=== PATIENT | female | born 1950 | race Caucasian/White ===

== ENCOUNTER → 2021-08-09 12:49 | Outpatient (BNVA) | payer MEDICARE, SELFPAY | PROVIDERS: Visit Provider Internal Medicine | DX: I48.0 Paroxysmal atrial fibrillation (principal); I51.81 Takotsubo syndrome; R94.31 Abnormal electrocardiogram [ECG] [EKG] | CPT/HCPCS: 93005; 99212 ==

== ENCOUNTER → 2021-08-17 10:47 | Outpatient (REF) | payer MEDICARE, SELFPAY ==
--- NOTE | 2021-08-17 11:01 | HM_ITS ---
* Total monitoring time 1 day 4 hours. * Underlying rhythm is sinus. Average rate 66/Min. Range 45 to 109/Min. About 13% of the time, rate less than 60/Min. * No atrial fibrillation or flutter or AV blocks or pauses. * Rare supraventricular ectopy with minimal burden. * Very rare ventricular ectopy with minimal burden. * No patient events. MTDD
== END ==
LOC: HO.CARD 10:47
PROVIDERS: Visit Provider Internal Medicine
DX: I48.0 Paroxysmal atrial fibrillation (principal); R00.2 Palpitations
CPT/HCPCS: 93242

== ENCOUNTER → 2021-10-13 13:27 | Outpatient (BNVA) | payer MEDICARE, SELFPAY | PROVIDERS: PCP Family Medicine; Visit Provider Internal Medicine | DX: I48.0 Paroxysmal atrial fibrillation (principal); I51.81 Takotsubo syndrome; R94.31 Abnormal electrocardiogram [ECG] [EKG] | CPT/HCPCS: 93005; 99212 ==

== ENCOUNTER → 2021-11-29 13:36 | Outpatient (BNVA) | payer MEDICARE, SELFPAY | PROVIDERS: PCP Family Medicine; Visit Provider Internal Medicine | DX: I48.0 Paroxysmal atrial fibrillation (principal); I51.81 Takotsubo syndrome; R94.31 Abnormal electrocardiogram [ECG] [EKG] | CPT/HCPCS: 99212 ==

== ENCOUNTER → 2021-12-13 15:41 | Outpatient (REF) | payer MEDICARE, SELFPAY ==
--- NOTE | 2021-12-13 15:44 | CA_ITS ---
Transthoracic Echocardiogram Patient (Last, First, Middle): Max Banks, Gender: Female Date of : 1950 Age: 71 Procedure Date: 12/13/2021 Procedure Type: Transthoracic Echocardiogram Location: OP Height: 154.94 cm Weight: 78.02 kg BSA: 1.77 m2 Heart Rate: bpm BP: 122 / 68 mmHg Computer Compositor: FARRAH Referring MD: Francisco Crawford MD Symptoms: I51.81 - Takotsubo syndrome Study Quality: Adequate/contrast ECG Rhythm: Sinus Conclusions: - The left ventricular systolic function is normal. The calculated ejection fraction is 61% by biplane method. - Evidence suggests grade II (moderate) diastolic dysfunction. - The left atrium is moderately dilated. - No obvious valvular pathology seen on this study. - Mild pulmonary hypertension is present. Findings Procedure Information Contrast agent, definity, is being given per protocol without apparent complications. Left Ventricle Normal left ventricular cavity size. There is normal left ventricular wall thickness. The left ventricular systolic function is normal. The calculated ejection fraction is 61% by biplane method. There is no evidence of regional wall motion abnormalities. E/E prime ratio is >15, consistent with elevated filling pressures. Evidence suggests grade II (moderate) diastolic dysfunction. Right Ventricle Mildly increased right ventricular cavity size. There is normal right ventricular systolic function. Atria The left atrium is moderately dilated. The right atrium is mildly dilated. Aortic Valve There is a normal trileaflet aortic valve. There is no aortic valve stenosis. There is trace (trivial) aortic valve regurgitation. Mitral Valve There is mild mitral annular calcification. There is trace mitral valve regurgitation. There is no mitral valve stenosis. Pulmonic Valve The pulmonic valve is likely normal. Tricuspid Valve There is mild tricuspid valve regurgitation. Mild pulmonary hypertension is present. Great Vessels The aortic annulus, sinuses of valsalva, and asc aorta are normal in size. Venous The inferior vena cava is normal in size and collapses greater than 50% with inspiration. Pericardium/Pleural There is no evidence of pericardial effusion. Prior Study Comparison No prior study available for comparison. Recommendations, Care & Conclusions No obvious valvular pathology seen on this study. Measurements 2D Linear Measurements IVSd: 0.92 0.6-0.9/0.6-1.0 cm LVIDd: 4.60 3.9-5.3/4.2-5.9 cm LVIDd Index: 2.60 2.4-3.2/2.2-3.1 cm/m2 LVIDs: 3.18 2.0-3.6 cm LVPWd: 0.88 0.7-1.1 cm LA Diam: 3.50 2.7-3.8/3.0-4.0 cm LAIDs Index: 1.98 1.5-2.3 cm/m2 LV Mass: 170.38 67-162/88-224 g LV Mass Index: 96.26 43-95/49-115 g/m2 LVOT Diam: 1.90 3.0+(-)1.3 cm 2D Systolic Function EF 4C: 62.70 >55% EF 2C: 63.50 >55% EF BiP: 61.30 >55% Mitral Valve MV Pk E: 1.10 MV PK A: 0.54 MV Decel Time: 201.00 E/A: 2.00 E'Lateral: 8.49 E'Medial: 6.64 E/E' Med: 16.60 E/E' Lat: 13.00 PHT: 59.00 MVA PHT: 3.73 Decel [place]: 5.45 Aortic Valve AoV Pk Hammad: 1.94 AoV Mn Hammad: 1.44 AoV VTI: 0.50 AoV Pk Grad: 15.00 Aov Mn Grad: 9.00 AIDAN Cont.VTI: 2.08 LVOT LVOT Pk Hammad: 1.49 LVOT Mn Hammad: 1.07 LVOT VTI: 0.36 LVOT Pk Grad: 9.00 LVOT Mn Grad: 5.00 LVOT Diam: 1.90 LVOT Area: 2.84 Diastolic Function MV Pk E: 1.10 MV Pk A: 0.54 E/A: 2.00 E'Medial: 6.64 E/E' Med: 16.60 E' Laterial: 8.49 E/E' Lat: 13.00 Right Ventricle TAPSE (mm): 22.20 TVS' Hammad: 10.40 Tricuspid Valve TR Pk Hammad: 2.92 TR Pk Grad: 34.00 RA Press: 3.00 RVSP: 37.00 Great Vessels Aorta Sinus of Valsalva: 2.98 2.0-3.[address] [place]: 2.39 1.7-3.4 cm Ao Asc: 3.40 2.1-3.4 cm Updated in Other Vendor System with Status of Final Francisco Crawford MD electronically signed on 12/14/2021 9:10:47 AM with status of Final
== END ==
LOC: HO.CARD 15:41
PROVIDERS: PCP Family Medicine; Visit Provider Internal Medicine
DX: I51.81 Takotsubo syndrome (principal)
CPT/HCPCS: 93306; Q9957

== ENCOUNTER → 2022-01-18 13:08 | Outpatient (BNVA) | payer MEDICARE, SELFPAY | PROVIDERS: PCP Family Medicine; Visit Provider Internal Medicine | DX: I48.0 Paroxysmal atrial fibrillation (principal); I51.81 Takotsubo syndrome; R94.31 Abnormal electrocardiogram [ECG] [EKG]; Z79.899 Other long term (current) drug therapy | CPT/HCPCS: 99212 ==

== ENCOUNTER 2022-05-16 12:19 | Outpatient (REF) | payer MEDICARE, SELFPAY ==
[2022-05-16 15:48] LABS: Anion Gap 12 (12-20); Blood Urea Nitrogen 18 mg/dL (9-16); Calcium 9.3 mg/dL (8.4-10.2); Carbon Dioxide 33 mmol/L (22-29); Chloride 101 mmol/L (96-108); Estimated Glomerular Filt Rate > 60; Glucose Random 120 mg/dL (60-115); Potassium 3.9 mmol/L (3.3-5.1); Sodium 142 mmol/L (135-145)
== END 2022-05-16 12:20 | disposition home or self-care (01) ==
LOC: HO.LAB 12:19
PROVIDERS: PCP Family Medicine; Visit Provider Internal Medicine
DX: I48.0 Paroxysmal atrial fibrillation (principal); I51.81 Takotsubo syndrome; R94.31 Abnormal electrocardiogram [ECG] [EKG]
CPT/HCPCS: 36415; 80048; 93005; 99212

== ENCOUNTER → 2022-09-28 10:08 | Outpatient (BNVA) | payer MEDICARE, SELFPAY | PROVIDERS: PCP Family Medicine; Visit Provider Internal Medicine | DX: I48.0 Paroxysmal atrial fibrillation (principal); I51.81 Takotsubo syndrome; R06.02 Shortness of breath | CPT/HCPCS: 93005; 99212 ==

== ENCOUNTER 2022-10-09 09:28 | Emergency (ER) | payer MEDICARE, SELFPAY ==
--- NOTE | ~2022-10-09 | CT_ITS ---
EXAMINATION: CT ANGIOGRAM OF THE CHEST WITH AND WITHOUT CONTRAST (CT PULMONARY ANGIOGRAM FOR PE) CLINICAL INFORMATION: Reason for Exam shortness of breath COMPARISON: None available. TECHNIQUE: Prior to contrast administration, noncontrast localization images were obtained. Subsequently, multidetector volumetric imaging was performed from the thoracic inlet to below the diaphragms following the administration of 65 mL Omnipaque 350 intravenous contrast. No contrast reaction reported Sagittal, coronal, and MIP oblique sagittal reformatted images were obtained on the CT workstation, uploaded to PACS, and reviewed. This CT examination was performed using dose optimization techniques as appropriate, variously including the following: *Automated exposure control *Adjustment of mA and/or kV according to patient size (this includes techniques or standardized protocols for targeted exams where dose is matched to indication/reason for exam; i.e. extremities or head) *Use of iterative reconstruction technique Total exam dose-length product 376 mGy-cm FINDINGS: QUALITY OF STUDY/CONTRAST BOLUS: Satisfactory. PULMONARY ARTERIES: No pulmonary emboli. THORACIC AORTA: No aneurysm. LUNG: There is a 4 mm nodule seen in the right middle lobe (8:253). There is a 3 mm perifissural nodule along the major fissure in the right lower lobe (8:175). No focal consolidation, additional or l worrisome nodules/masses. PLEURA: No pleural effusion or pneumothorax. MEDIASTINUM: The esophagus is patulous and filled with fluid. Normal heart size. No pericardial effusion. No hilar or mediastinal lymphadenopathy. No evidence of septal bowing or right heart strain. CORONARY ARTERY CALCIFICATION: None visualized on this study. CHEST WALL/AXILLA: No axillary or internal mammary lymphadenopathy. OSSEOUS STRUCTURES: No acute or suspicious osseous abnormality. There is a compression fracture of L1 with kyphoplasty changes with some cement in the L1-L2 disc space. UPPER ABDOMEN: Unremarkable. No reflux of contrast into the hepatic veins to suggest elevated right heart pressures. CT/CT angio chest PE protocol IMPRESSION: 1. No evidence of pulmonary emboli. 2. Markedly patulous esophagus, filled with fluid. GI consultation barium swallow may be indicated. No definite obstructing mass lesion is seen. 3. 4 mm right middle lobe lung nodule. VTE: negative. 2017 Fleischner Society Recommendations for Lung Nodule(s): Follow up based on size (average of long- and short-axis diameters). Use most suspicious nodule for followup. Multiple Solid lung nodules < 6 mm: Follow up management based on most suspicious nodule. In a low-risk patient, no routine follow-up imaging is recommended. In a high-risk patient, a non-contrast Chest CT at 12 months is optional. If performed and the nodule is stable at 12 months, no further follow up is recommended. These guidelines do not apply to patients younger than 35 years, immunocompromised patients, and patients with cancer. F/u in patients with significant comorbidities as clinically warranted. For lung cancer screening, adhere to Lung-RADS guidelines. Reference: Radiology. 2017 [employer]; 284(1):228-243
--- NOTE | ~2022-10-09 | XR_ITS ---
EXAMINATION: XR CHEST CLINICAL INFORMATION: Dyspnea COMPARISON: None available. TECHNIQUE: 2 views of the chest were obtained. FINDINGS: Very dilated air-filled esophagus. Normal heart size. Hilar and mediastinal contours are otherwise normal. Clear lungs. No pleural effusion or pneumothorax. Degenerative changes of the spine. Mild old appearing proximal thoracic vertebral body compression fracture. Old fracture deformity of the left shoulder. Old left lateral rib fracture. XR/XR chest 2V IMPRESSION: Dilated air-filled esophagus.
[2022-10-09 09:51] VITALS: BP 124/68; PULSE 67; RESP 20; TEMP 36.3; O2SAT 93; BMI 33.6
[2022-10-09 10:12] LABS: MANUAL DIFF FLAG NO
[2022-10-09 10:13] LABS: Basophils Absolute Auto 0.1 X10*3/uL (0.0-0.2); Basophils Percent Auto 0.9 % (0-2); Eosinophils Absolute Auto 0.4 X10*3/uL (0.0-0.4); Eosinophils Percent Auto 6.5 % (0-4); Hematocrit 36.8 % (37.0-47.0); Hemoglobin 11.9 g/dl (12.0-16.0); Imm Gran Abs Auto 0.02 X10*3/uL (0.00-0.03); Imm Gran Pct Auto 0.4 % (0.0-0.4); Lymphocytes Absolute Auto 1.8 X10*3/uL (1.2-4.9); Lymphocytes Percent Auto 30.6 % (20-40); Mean Corpuscular HGB Conc 32.3 g/dl (31.0-35.0); Mean Corpuscular Hemoglobin 30.1 pg (27.0-33.0); Mean Corpuscular Volume 93.2 fL (80.0-98.0); Mean Platelet Volume 8.6 fL (9.4-12.3); Monocytes Absolute Auto 0.4 X10*3/uL (0.1-1.2); Monocytes Percent Auto 6.7 % (2-11); Neutrophils Absolute Auto 3.1 x10*3/uL (2.0-8.3); Neutrophils Percent Auto 54.9 % (45-73); Platelet Count 295 X10*3/uL (160-400); Red Blood Count 3.95 X10*6/uL (4.20-5.50); Red Cell Distribution Width 14.7 % (11.0-16.0); White Blood Count 5.7 X10*3/uL (4.8-10.8)
[2022-10-09 10:25] LABS: Alanine Aminotransferase 19 U/L (0-31); Albumin Level 4.2 g/dL (3.5-5.0); Alkaline Phosphatase 76 U/L (39-117); Anion Gap 15 (12-20); Aspartate Amino Transferase 24 U/L (5-31); Bilirubin Direct 0.2 mg/dL (0.0-0.5); Bilirubin Total 0.6 mg/dL (0.0-1.0); Blood Urea Nitrogen 16 mg/dL (9-16); Calcium 9.4 mg/dL (8.4-10.2); Carbon Dioxide 27 mmol/L (22-29); Chloride 105 mmol/L (96-108); Creatinine Clr Calc Pharmacy 53.1; Estimated Glomerular Filt Rate > 60; Glucose Random 144 mg/dL (60-115); Lipase 18 U/L (8-78); Potassium 3.8 mmol/L (3.3-5.1); Sodium 143 mmol/L (135-145); Total Protein 6.6 g/dL (6.5-8.0)
[2022-10-09 10:26] LABS: B Type Natriuretic Peptide 19 pg/mL (<100)
[2022-10-09 12:00] VITALS: BP 115/65; PULSE 87; RESP 18; TEMP 36.6; O2SAT 92
--- NOTE | 2022-10-09 12:30 | PC.NURSE ---
Alert and oriented. Arrived from [facility] complaining of SOB since . States on thur she woke sob. States on sat took an extra dose of lasiks (20mg) so get m extra fluids off. States it did help sat but woke up sob again sunday. States uses a bipap every night. No edema noted to bilat lower extremities. sating 92% placed on 2 liters 02 was sat up to 98%. NO sob with rest noted. Wheezing noted - patient states has been wheezig throughout the weekend. Has occasional dry cough that patient states is new. Denies chest pain, headache, nausea, or vomiting.
--- NOTE | 2022-10-09 12:46 | ECG_ITS ---
Test Reason : SOB Blood Pressure : / mmHG Vent. Rate : 046 BPM Atrial Rate : 046 BPM P-R Int : 166 ms QRS Dur : 102 ms QT Int : 492 ms P-R-T Axes : 053 052 046 degrees QTc Int : 430 ms Sinus bradycardia Otherwise normal ECG No previous ECGs available Referred By: Jamar Bahena Electronically Signed By:DARNELL NIETO MD
--- NOTE | 2022-10-09 13:32 | ED.SOB ---
HPI - SOB/Dyspnea General Chief Complaint: Dyspnea Stated Complaint: Diff breathing/cough Time Seen by Provider: 10/09/22 11:57 Source: patient Mode of arrival: EMS Limitations: no limitations History of Present Illness HPI Narrative: 72-year-old female with history of cardiomyopathy, sleep apnea presents with shortness breath. The symptoms started approximately 5 days ago. They appear to be worse when getting up in the morning. She takes some extra Lasix her symptoms get better. Patient describes symptoms as moderate to severe. There is no chest pain. There is associated dry cough occasionally with clear mucus production. She denies any fevers or chills. She denies any lower extremity edema although she feels like they might be swollen. Patient denies a history of similar symptoms. There are no sick contacts. Patient denies any nasal congestion, rhinorrhea or pruritus. Related Data Home Medications Medication Instructions Recorded Confirmed apixaban 5 mg tablet (Eliquis) 5 mg PO BID 08/09/21 09/28/22 hydrocodone 7.5 mg-acetaminophen 1 tab PO Q4H PRN pain 08/09/21 09/28/22 325 mg tablet levothyroxine 25 mcg tablet 25 mcg PO DAILY 08/09/21 09/28/22 pravastatin 40 mg tablet 40 mg PO QPM 08/09/21 09/28/22 pregabalin 200 mg capsule 200 mg PO BID 08/09/21 09/28/22 aripiprazole 10 mg tablet 10 mg PO BID 10/13/21 09/28/22 duloxetine 20 mg capsule,delayed 20 mg PO .QD 01/18/22 09/28/22 release metoprolol succinate 25 mg 25 mg PO DAILY 01/18/22 09/28/22 tablet,extended release 24 hr (Toprol XL) oxybutynin chloride 15 mg 15 mg PO DAILY 05/16/22 09/28/22 tablet,extended release 24 hr Previous Rx's Medication Instructions Recorded furosemide 40 mg tablet 40 mg PO DAILY #90 tabs 02/14/22 Allergies Allergy/AdvReac Type Severity Reaction Status Date / Time alendronate sodium Allergy Mild Rash Verified 10/09/22 09:53 [From Fosamax] calcitriol Allergy Unknown Unknown Verified 10/09/22 09:53 amitriptyline AdvReac Severe SVT Verified 10/09/22 09:53 morphine AdvReac Unknown Hypotension Verified 10/09/22 09:53 Sulfa (Sulfonamide AdvReac Unknown tooth pain Verified 10/09/22 09:53 Antibiotics) Review of Systems Review of Systems: CONSTITUTIONAL: Denies weight loss, fever and chills. HEENT: Denies changes in vision and hearing. RESPIRATORY: + SOB and cough. CV: Denies palpitations no CP. GI: Denies abdominal pain, nausea, vomiting and diarrhea. : Denies dysuria and urinary frequency. MSK: Denies myalgia and joint pain. SKIN: Denies rash and pruritus. NEUROLOGICAL: Denies headache and syncope. PSYCHIATRIC: Denies recent changes in mood. Denies anxiety and depression. All other ROS are negative unless in HPI PMFSH Past Medical History Medical History PAF (paroxysmal atrial fibrillation) QT prolongation Stress-induced cardiomyopathy Surgical History H/O section History of appendectomy History of endoscopy History of hysterectomy History of tubal ligation Family History Family History Father Heart attack Mother Heart attack Brother H/O heart artery stent Social History Social History Alcohol intake: current Alcohol intake frequency: a few times a month Patient Tobacco Use Status: Former Tobacco user Quit Date: 1981 Smoked: 10 +/- Advance Directives: No Advance Directives Information Provided: Yes Physical Exam Vital Signs: Vital Signs: Last Vital Signs Temp 98.1 F 10/09/22 16:15 Pulse 61 10/09/22 16:15 Resp 20 10/09/22 16:15 BP 114/55 L 10/09/22 16:15 Pulse Ox 94 10/09/22 16:15 O2 Del Method Room Air 10/09/22 16:15 BMI result Body Mass Index 33.6 GEN: Well developed, no acute distress, alert, oriented HEENT: Normocephalic, atraumatic, normal external ears, nose appears normal, no oropharyngeal edema or exudates Eyes: Normal to appearance Neck: Supple, no lymphadenopathy Respiratory: Talks in complete sentences, no respiratory distress, clear to auscultation bilaterally Cardiovascular: Regular rate and rhythm, no murmurs rubs or gallops Abdomen: Soft, nontender, nondistended, no guarding, no rebound Back: No CVA tenderness Extremities: No clubbing cyanosis or edema Neurologic: No focal neurologic deficits, cranial nerves 2-12 intact, strength is 5/5 bilaterally Skin: No rash Medications Administered Discontinued Medications Generic Name Dose Route Start Last Admin Trade Name Negra PRN Reason Stop Dose Admin Iohexol 100 ml 10/09/22 13:41 10/09/22 13:42 Iohexol 350 Mg/Ml 100 Ml Infus..Btl IV 10/09/22 13:42 65 ml ONCE ONE Administration Medical Decision Making Medical Decision Making [facility] Narrative: 72-year-old female with history of cardiomyopathy can not and sleep apnea presents shortness breath. Examination was unremarkable. Patient was initially seen when on oxygen however, off oxygen, oxygen saturations 94-96% on room air. Differential diagnosis could include COPD, asthma, CHF, pulmonary embolus, pneumothorax, myopathy. Plan chest x-ray, EKG, laboratory analysis to rule out anemia or electrolyte abnormality and frequent re-evaluations. Disposition pending workup. Took over patient's case at the change of shift from Dr. Hager. Pending CTA. CTA results showed no evidence of pulmonary emboli. A nodule was noted some fullness in the esophagus was noted. This finding was discussed with patient. Will need follow-up on an outpatient basis. Patient is in stable condition. O2 sat is normal. Well-appearing. No distress. Differential Diagnosis Differential Diagnoses: The differential diagnosis associated with the presentation includes (See above) Admission/Observation Consideration of admission/observation: Escalation of care including admission/observation considered Lab Data [facility] Lab Attestation statement: I reviewed the patient's lab results. 10/09/22 10:04 10/09/22 09:59 Labs: Lab Results 10/09/22 10/09/22 10/09/22 Range/Units 09:59 09:59 10:04 WBC 5.7 (4.8-10.8) X10*3/uL RBC 3.95 L (4.20-5.50) X10*6/uL Hgb 11.9 L (12.0-16.0) g/dl Hct 36.8 L (37.0-47.0) % MCV 93.2 (80.0-98.0) fL MCH 30.1 (27.0-33.0) pg MCHC 32.3 (31.0-35.0) g/dl RDW 14.7 (11.0-16.0) % Plt Count 295 (160-400) X10*3/uL MPV 8.6 L (9.4-12.3) fL Immature Gran % (Auto) 0.4 (0.0-0.4) % Neut % (Auto) 54.9 (45-73) % Lymph % (Auto) 30.6 (20-40) % Crawford % (Auto) 6.7 (2-11) % Eos % (Auto) 6.5 H (0-4) % Baso % (Auto) 0.9 (0-2) % Lymph # (Auto) 1.8 (1.2-4.9) X10*3/uL Crawford # (Auto) 0.4 (0.1-1.2) X10*3/uL Eos # (Auto) 0.4 (0.0-0.4) X10*3/uL Baso # (Auto) 0.1 (0.0-0.2) X10*3/uL Abs Immat Gran (auto) 0.02 (0.00-0.03) X10*3/uL Absolute Neuts (auto) 3.1 (2.0-8.3) x10*3/uL Absolute Nucleated RBC 0.000 (0.0-0.012) X10*3/uL Nucleated RBC % (auto) 0.0 (0.0-0.2) /100WBC Sodium 143 (135-145) mmol/L Potassium 3.8 (3.3-5.1) mmol/L Chloride 105 (96-108) mmol/L Carbon Dioxide 27 (22-29) mmol/L Anion Gap 15 (12-20) BUN 16 (9-16) mg/dL Creatinine 0.87 (0.5-1.4) mg/dL Estim Creat Clear Calc 53.1 Estimated GFR > 60 Random Glucose 144 H (60-115) mg/dL Calcium 9.4 (8.4-10.2) mg/dL Total Bilirubin 0.6 (0.0-1.0) mg/dL Direct Bilirubin 0.2 (0.0-0.5) mg/dL AST 24 (5-31) U/L ALT 19 (0-31) U/L Alkaline Phosphatase 76 (39-117) U/L B-Natriuretic Peptide 19 (<100) pg/mL Total Protein 6.6 (6.5-8.0) g/dL Albumin 4.2 (3.5-5.0) g/dL Lipase 18 (8-78) U/L Independent Interpretation I performed an independent interpretation of an: Plain X-Ray (Chest: No acute cardiopulmonary disease) External Record Review External record reviewed: Office record Prescription Management I considered prescription management with: Antibiotic Discharge Plan Discharge Clinical Impression: Acute dyspnea Patient Disposition: Home, Self-Care Instructions: Dyspnea (ED) Additional Instructions: ? No evidence of pulmonary emboli. 2.? Markedly patulous esophagus, filled with fluid. GI consultation barium swallow may be indicated. No definite obstructing mass lesion is seen. 3.? 4 mm right middle lobe lung nodule. A nodule was found in your lungs. Nonspecific finding was noted in your esophagus. Please follow-up on an outpatient basis. Prescriptions: No Action furosemide 40 mg tablet 40 mg PO DAILY Qty: 90 2RF pregabalin 200 mg capsule 200 mg PO BID levothyroxine 25 mcg tablet 25 mcg PO DAILY Eliquis 5 mg tablet 5 mg PO BID hydrocodone-acetaminophen 7.5-325 mg tablet 1 tab PO Q4H PRN (Reason: pain) pravastatin 40 mg tablet 40 mg PO QPM duloxetine 20 mg capsule,delayed release(DR/EC) 20 mg PO .QD metoprolol succinate [Toprol XL] 25 mg tablet extended release 24 hr 25 mg PO DAILY aripiprazole 10 mg tablet 10 mg PO BID oxybutynin chloride 15 mg tablet extended release 24hr 15 mg PO DAILY Referrals: Angie Briggs MD [Primary Care Provider] - 2 days
--- NOTE | 2022-10-09 13:34 | PC.NURSE ---
Alert and oriented, Iv placed in right AC for CT angio. No sob at this time.
[2022-10-09] MEDS: iohexoL 350 MG/ML 100 ML INFUS..BTL IV (13:42)
[2022-10-09 14:00] VITALS: BP 130/80; RESP 18; O2SAT 94
--- NOTE | 2022-10-09 15:01 | PC.NURSE ---
Alert and oriented, no sob noted at rest, patient resting comfortably in bed a this time. VSS.
[2022-10-09 16:15] VITALS: BP 114/55; PULSE 61; RESP 20; TEMP 36.7; O2SAT 94
--- NOTE | 2022-10-09 18:16 | PC.NURSE ---
Radiology trade embalmer called to inquire about CTA results, trade embalmer states she will look into it and reach out to radiologist for reading.
[2022-10-09 19:08] VITALS: BP 157/70; PULSE 69; RESP 16; TEMP 36.4; O2SAT 95
== END 2022-10-09 19:21 | disposition home or self-care (01) ==
PROVIDERS: Emergency Provider Emergency Medicine; PCP Family Medicine
DX: R06.00 Dyspnea, unspecified (principal); R06.02 Shortness of breath; I42.9 Cardiomyopathy, unspecified; G47.30 Sleep apnea, unspecified
CPT/HCPCS: 36415; 71046; 71275; 80048; 80076; 83690; 83880; 85025; 93005; 99284; Q9967

== ENCOUNTER → 2022-11-07 09:43 | Outpatient (REF) | payer MEDICARE, SELFPAY ==
--- NOTE | 2022-11-07 09:45 | CA_ITS ---
Transthoracic Echocardiogram Patient (Last, First, Middle): Max Banks, Gender: Female Date of : 1950 Age: 72 Procedure Date: 11/07/2022 Procedure Type: Transthoracic Echocardiogram Location: OP Height: 152.4 cm Weight: 76.2 kg BSA: 1.73 m2 Heart Rate: bpm BP: 122 / 60 mmHg Structural Welder: EDWARD Referring MD: Jessica iL INSTRUCTOR CREELER-Marylou Brilliandeer Lopper: Ronny Hough MD Symptoms: R06.02 - Shortness of breath Study Quality: Adequate ECG Rhythm: Sinus Conclusions: - 1. Normal LV systolic function with pseudonormal filling pressure with suggestion of increased left ventricular end diastolic pressure next 2. Moderately dilated left atrium 3. Normal cardiac valvular Dopplers 4. Normal calculated RV systolic pressure 5. No gross pericardial effusion Findings Left Ventricle Normal left ventricular size, thickness, and systolic function. The visually estimated ejection fraction is between 60-65%. Spectral Doppler is indicative of a pseudonormal filling pattern. Elevated left ventricular end diastolic pressure. E/E prime ratio is between 8 and 15 consistent with indeterminate filling pressures. Right Ventricle Normal right ventricular cavity size and systolic function. Atria The left atrium is moderately dilated. There is no evidence of interatrial shunt. The right atrium is likely dilated. Aortic Valve The aortic valve structure and function is likely normal. There is no aortic valve stenosis. There is no aortic valve regurgitation. Mitral Valve Likely normal mitral valve structure and function. There is mild mitral annular calcification. There is trace mitral valve regurgitation. There is no mitral valve stenosis. Pulmonic Valve The pulmonic valve is likely normal. Tricuspid Valve Likely normal tricuspid valve structure and function. There is trace tricuspid valve regurgitation. The right ventricular systolic pressure is normal. The right ventricular systolic pressure is 21 mmHg. Normal right atrial pressure. There is no evidence of pulmonary hypertension. Great Vessels All visible segments of the aorta are normal in size. The pulmonary artery was not well visualized. Venous The inferior vena cava is normal in size and collapses greater than 50% with inspiration. Pericardium/Pleural There is no evidence of pericardial effusion. Prior Study Comparison No significant change compared to prior study dated: 12/13/2021. Measurements 2D Linear Measurements IVSd: 1.00 0.6-0.9/0.6-1.0 cm LVIDd: 4.10 3.9-5.3/4.2-5.9 cm LVIDd Index: 2.37 2.4-3.2/2.2-3.1 cm/m2 LVIDs: 2.70 2.0-3.6 cm LVPWd: 1.10 0.7-1.1 cm Ao Root: 2.80 2.1-3.5 cm LA Diam: 4.10 2.7-3.8/3.0-4.0 cm LAIDs Index: 2.37 1.5-2.3 cm/m2 LV Mass: 176.18 67-162/88-224 g LV Mass Index: 101.84 43-95/49-115 g/m2 LVOT Diam: 2.00 3.0+(-)1.3 cm 2D Systolic Function EF 4C: 61.40 >55% EF 2C: 68.20 >55% EF BiP: 64.50 >55% Mitral Valve MV Pk E: 0.86 MV PK A: 0.62 MV Decel Time: 157.00 E/A: 1.40 E'Lateral: 10.20 E'Medial: 9.36 E/E' Med: 9.20 E/E' Lat: 8.50 PHT: 46.00 MVA PHT: 4.78 Decel Rhea: 5.49 Aortic Valve AoV Pk Hammad: 1.84 AoV Mn Hammad: 1.19 AoV VTI: 0.43 AoV Pk Grad: 14.00 Aov Mn Grad: 7.00 AIDAN Cont.VTI: 2.36 LVOT LVOT Pk Hammad: 1.44 LVOT Mn Hammad: 0.85 LVOT VTI: 0.33 LVOT Pk Grad: 8.00 LVOT Mn Grad: 4.00 LVOT Diam: 2.00 LVOT Area: 3.14 Diastolic Function MV Pk E: 0.86 MV Pk A: 0.62 E/A: 1.40 E'Medial: 9.36 E/E' Med: 9.20 E' Laterial: 10.20 E/E' Lat: 8.50 Right Ventricle TAPSE (mm): 26.00 TVS' Hammad: 10.00 Tricuspid Valve TR Pk Hammad: 2.14 TR Pk Grad: 18.00 RA Press: 3.00 RVSP: 21.00 Great Vessels Aorta Ao Root-2D: 2.80 2.0-3.7 cm Ao Asc: 3.00 2.1-3.4 cm Pulmonary Valve PV Pk Hammad: 0.88 Peak PV Grad: 3.00 Updated in Other Vendor System with Status of Final Ronny Hough MD electronically signed on 11/07/2022 3:38:13 PM with status of Final
== END ==
LOC: HO.CARD 09:43
PROVIDERS: PCP Family Medicine; Visit Provider Nurse Practitioner Family
DX: R06.02 Shortness of breath (principal); I51.81 Takotsubo syndrome
CPT/HCPCS: 93306

== ENCOUNTER → 2022-11-07 09:45 | Outpatient (BNV) | payer MEDICARE, SELFPAY | PROVIDERS: PCP Family Medicine; Visit Provider Internal Medicine Cardiovascular Disease | DX: I34.81 Nonrheumatic mitral (valve) annulus calcification (principal) | CPT/HCPCS: 93306 ==

== ENCOUNTER 2022-11-21 12:35 | Outpatient (AMB) | payer MEDICARE, SELFPAY ==
--- NOTE | 2022-11-21 12:42 | MHC.OFFVIS ---
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 Accompanied by: Self / Same As Patient Allergies alendronate sodium [From Fosamax] Allergy (Mild, Verified 11/21/22 12:44) Rash calcitriol Allergy (Unknown, Verified 11/21/22 12:44) Unknown amitriptyline Adverse Reaction (Severe, Verified 11/21/22 12:44) SVT morphine Adverse Reaction (Unknown, Verified 11/21/22 12:44) Hypotension Sulfa (Sulfonamide Antibiotics) Adverse Reaction (Unknown, Verified 11/21/22 12:44) tooth pain Medication List - Last Reconciled 11/21/22 by Francisco Crawford MD apixaban (Eliquis) 5 mg PO BID aripiprazole 10 mg PO BID duloxetine 20 mg PO .QD furosemide 40 mg PO DAILY hydrocodone-acetaminophen 5-325 mg 1 tab PO Q6H PRN levothyroxine 25 mcg PO DAILY metoprolol succinate ER 25 mg PO DAILY oxybutynin chloride ER 15 mg PO DAILY pravastatin 40 mg PO QPM pregabalin 200 mg PO BID HPI HPI Comments History of Present Illness Details Max returns for follow-up. To recall, she was seen in consultation at [facility]. At that time, EKG was abnormal and corrected QT interval was almost 590 milliseconds. She was taking carvedilol and amiodarone. Previously, history of atrial fibrillation ablation. History of stress-induced cardiomyopathy. Subsequent, we stopped both carvedilol and amiodarone. Few months back, she was complaining of some shortness of breath. Then Lasix dose was increased. Since that time, no new symptoms. Overall, generally feeling okay. She still gets some shortness of breath while pushing the 's wheelchair up an incline but otherwise generally fine. [facility] Medical History PAF (paroxysmal atrial fibrillation) QT prolongation Stress-induced cardiomyopathy Surgical History H/O section History of appendectomy History of endoscopy History of hysterectomy History of tubal ligation Family History Father Heart attack Mother Heart attack Brother H/O heart artery stent Social History Alcohol intake: current Alcohol intake frequency: a few times a month Patient Tobacco Use Status: Former Tobacco user Quit Date: 1981 Years Smoked: 10 +/- Review of Systems Const Denies weakness ENT Denies dizziness Card Denies chest pain, Denies chest pain with activity, Denies syncope, Denies rapid heart rate, Denies pedal edema, Denies edema, Denies leg edema, Denies lightheadedness, Denies palpitations, Denies dyspnea, Denies dyspnea on exertion and Denies orthopnea Resp Denies cough, Denies dyspnea and Denies dyspnea on exertion GI Denies hematochezia and Denies change in stool character Musc Denies abnormal gait, Denies muscle cramps, Denies muscle weakness, Denies numbness, Denies radiating pain into limb and Denies tingling Neuro Denies abnormal gait, Denies dizziness, Denies syncope, Denies numbness, Denies tingling and Denies weakness Endo Denies palpitations Physical Exam Vital Signs: Last Vital Signs Pulse 67 11/21/22 12:43 BP 92/60 11/21/22 12:43 BMI result Body Mass Index 34.1 Const General: comfortable and no acute distress Orientation/consciousness: patient oriented x3 HEENT Other: Unremarkable Head: Yes normal to inspection Neck Neck: Yes normal visual inspection Chest Chest palpation & inspection: normal inspection of the chest Resp Auscultation: clear to auscultation bilaterally Cardio Palpation: normal PMI Heart sounds: S1 normal heart sound present, S2 normal heart sound present, no gallops, Murmur heart sound present systolic I/ and at the right sternal border and no rubs GI Palpation (GI): Soft to palpation Back/Spine/Pelvis Other: unremarkable Skin General skin exam: no rashes or lesions noted Neuro General: patient oriented x3 Extrem Other: 1+ edema General: Yes normal to inspection Psych Mental Status: mental status grossly normal Assessment & Plan Assessment & Plan (1) PAF (paroxysmal atrial fibrillation): Code(s): I48.0 - Paroxysmal atrial fibrillation Plan: Status post pulmonary vein isolation 2019. Due to markedly prolonged QT, off Amiodarone. With regard to other medications, it seems that she had recurrence of atrial fibrillation the past when Amiodarone dose reduced. Metoprolol had given her symptoms like dizziness and hypotension. Multaq was also tried but not very helpful. At the current time, she is stable on beta-blockers and may be continued. If any recurrence, possibly another ablation. Since last time, no new issues. Overall stable from this end. (2) Stress-induced cardiomyopathy: Code(s): I51.81 - Takotsubo syndrome Plan: In the most recent echocardiogram, LVEF 60-65%. Suspected moderate diastolic dysfunction but E' values seem to be in the normal range. No evidence of pulmonary hypertension. In the prior echocardiogram from [facility], LVEF was 51%. Basal to mid inferior wall described to be hypokinetic. Described to have improvement in biventricular function compared to before. In the discharge summary from [facility], described to have angiographically normal coronary arteries. Overall, remains stable. Continue diuretics. Not suitable for other medications due to low blood pressure issues. (3) QT prolongation: Code(s): R94.31 - Abnormal electrocardiogram [ECG] [EKG] Plan: Corrected QT as much as 590 milliseconds while on amiodarone as well as Coreg, psychiatric medications. Then normalized. Can be followed periodically. Plan Total time spent including review of data, counseling, documentation, coordination of care-31 minutes. Medications: Refilled furosemide 40 mg PO DAILY 90 tabs 3RF Coding Level of Care Code Est Pt Level 4 (51848) Diagnoses PAF (paroxysmal atrial fibrillation) I48.0 Stress-induced cardiomyopathy I51.81 QT prolongation R94.31
[2022-11-21 12:43] VITALS: BP 92/60; PULSE 67; BMI 34.1
== END 2022-11-21 12:56 | disposition home or self-care (01) ==
PROVIDERS: Visit Provider Internal Medicine
DX: I48.0 Paroxysmal atrial fibrillation (principal); I51.81 Takotsubo syndrome; R94.31 Abnormal electrocardiogram [ECG] [EKG]
CPT/HCPCS: 99214

== ENCOUNTER → 2022-11-21 12:35 | Outpatient (BNVA) | payer MEDICARE, SELFPAY | PROVIDERS: Visit Provider Internal Medicine | DX: I48.0 Paroxysmal atrial fibrillation (principal); I51.81 Takotsubo syndrome; I45.81 Long QT syndrome | CPT/HCPCS: 99212 ==

== ENCOUNTER 2023-05-24 13:31 | Outpatient (AMB) | payer MEDICARE, SELFPAY ==
--- NOTE | 2023-05-24 13:41 | A.OFFVIS_ITS ---
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 Accompanied by: Self / Same As Patient Allergies alendronate sodium [From Fosamax] Allergy (Mild, Verified 05/24/23 13:45) Rash calcitriol Allergy (Unknown, Verified 05/24/23 13:45) Unknown amitriptyline Adverse Reaction (Severe, Verified 05/24/23 13:45) SVT morphine Adverse Reaction (Unknown, Verified 05/24/23 13:45) Hypotension Sulfa (Sulfonamide Antibiotics) Adverse Reaction (Unknown, Verified 05/24/23 13:45) tooth pain Medication List - Last Reconciled 05/24/23 by Francisco Crawford MD apixaban (Eliquis) 5 mg PO BID aripiprazole 10 mg PO BID duloxetine 20 mg PO .QD furosemide 40 mg PO DAILY hydrocodone-acetaminophen 5-325 mg 1 tab PO Q6H PRN levothyroxine 25 mcg PO DAILY metoprolol succinate ER 25 mg PO DAILY oxybutynin chloride ER 15 mg PO DAILY pravastatin 40 mg PO QPM pregabalin 200 mg PO BID HPI HPI Comments History of Present Illness Details Max returns for follow-up. To recall, she was seen in consultation at [facility]. At that time, EKG was abnormal and corrected QT interval was almost 590 milliseconds. She was taking carvedilol and amiodarone. Previously, history of atrial fibrillation ablation. History of stress-induced cardiomyopathy. Subsequent, we stopped both carvedilol and amiodarone. More recently, she has been on metoprolol. She is generally doing well. She still gets occasional palpitations but not too frequent and not too bothersome. Otherwise, getting along okay. [facility], [facility] Medical History PAF (paroxysmal atrial fibrillation) QT prolongation Stress-induced cardiomyopathy Surgical History History of appendectomy H/O section History of endoscopy History of tubal ligation History of hysterectomy Family History Father Heart attack Mother Heart attack Brother H/O heart artery stent Social History Alcohol intake: current Alcohol intake frequency: a few times a month Patient Tobacco Use Status: Former Tobacco user Quit Date: 1981 Years Smoked: 10 +/- Review of Systems Const Denies weakness ENT Denies dizziness Card Denies syncope, Denies palpitations and Reports dyspnea on exertion Resp Reports dyspnea on exertion GI Denies hematochezia and Denies change in stool character Musc Denies abnormal gait, Denies muscle cramps, Denies muscle weakness, Denies numbness, Denies radiating pain into limb and Denies tingling Neuro Denies abnormal gait, Denies dizziness, Denies syncope, Denies numbness, Denies tingling and Denies weakness Endo Denies palpitations Physical Exam Vital Signs: Last Vital Signs Pulse 77 05/24/23 13:42 BP 110/60 05/24/23 13:42 BMI result Body Mass Index 34.1 Const General: comfortable and no acute distress Orientation/consciousness: patient oriented x3 HEENT Other: Unremarkable Head: Yes normal to inspection Neck Neck: Yes normal visual inspection Chest Chest palpation & inspection: normal inspection of the chest Resp Auscultation: clear to auscultation bilaterally Cardio Palpation: normal PMI Heart sounds: S1 normal heart sound present, S2 normal heart sound present, no gallops, no murmurs and no rubs GI Palpation (GI): Soft to palpation Back/Spine/Pelvis Other: unremarkable Skin General skin exam: no rashes or lesions noted Neuro General: patient oriented x3 Extrem General: Yes normal to inspection Psych Mental Status: mental status grossly normal Office Procedures EKG Details: EKG with sinus bradycardia 58/Min; no significant ST-T changes and otherwise unremarkable[place] [id number], Complete Assessment & Plan Assessment & Plan (1) PAF (paroxysmal atrial fibrillation): Code(s): I48.0 - Paroxysmal atrial fibrillation Plan: Status post pulmonary vein isolation 2018. Due to markedly prolonged QT, off Amiodarone. With regard to other medications, it seems that she had recurrence of atrial fibrillation in the past when Amiodarone dose reduced. Metoprolol had given her symptoms like dizziness and hypotension. Multaq was also tried but not very helpful. At the current time, she is stable on beta-blockers and may be continued. If continues to have recurrent atrial fibrillation, then possibly another ablation. To be decided. (2) Stress-induced cardiomyopathy: Code(s): I51.81 - Takotsubo syndrome Plan: In the most recent echocardiogram, LVEF 60-65%. Reported moderate diastolic dysfunction but E' values seem to be in the normal range. No evidence of pulmonary hypertension. In the prior echocardiogram from [facility], LVEF was 51%. Basal to mid inferior wall described to be hypokinetic. Described to have improvement in biventricular function compared to before. In the discharge summary from [facility], described to have angiographically normal coronary arteries. Overall, remains stable. Continue diuretics. Not suitable for other medications due to low blood pressure issues. (3) QT prolongation: Code(s): R94.31 - Abnormal electrocardiogram [ECG] [EKG] Plan: Corrected QT as much as 590 milliseconds while on amiodarone as well as Coreg, psychiatric medications. Then normalized. Can be followed periodically on EKGs. Coding Level of Care Code Est Pt Level 4 (96318) Diagnoses PAF (paroxysmal atrial fibrillation) I48.0 Stress-induced cardiomyopathy I51.81 QT prolongation R94.31 CPT Codes EKG - CPT: 35728-[id number], Complete ([id number])
[2023-05-24 13:42] VITALS: BP 110/60; PULSE 77; BMI 34.1
== END 2023-05-24 14:17 | disposition home or self-care (01) ==
PROVIDERS: PCP Family Medicine; Visit Provider Internal Medicine
DX: I48.0 Paroxysmal atrial fibrillation (principal); I51.81 Takotsubo syndrome; R94.31 Abnormal electrocardiogram [ECG] [EKG]
CPT/HCPCS: 93010; 99214

== ENCOUNTER → 2023-05-24 13:31 | Outpatient (BNVA) | payer MEDICARE, SELFPAY | PROVIDERS: PCP Family Medicine; Visit Provider Internal Medicine | DX: I48.0 Paroxysmal atrial fibrillation (principal); I51.81 Takotsubo syndrome; R94.31 Abnormal electrocardiogram [ECG] [EKG] | CPT/HCPCS: 93005; 99212 ==

== ENCOUNTER → 2023-06-11 09:22 | Outpatient (REF) | payer MEDICARE, SELFPAY ==
--- NOTE | 2023-06-11 09:25 | HM_ITS ---
Conclusion: 1. Patient was monitored for total period of 14 days 2. Baseline was normal sinus rhythm with average heart of 75 beats per minute 3. Intermittent episodes of atrial fibrillation with rapid ventricular response noted with total burden of 17.3% with longest episode lasting 10 hours and 51 minutes 4. No significant pauses noted 5. Frequent PACs noted with total burden of 4% 6. Patient reported 4 events with symptoms of not feeling well, fluttering in chest, palpitations correlating with atrial fibrillation MTDD
== END ==
LOC: HO.CARD 09:22
PROVIDERS: PCP Family Medicine; Visit Provider Internal Medicine
DX: I48.0 Paroxysmal atrial fibrillation (principal)
CPT/HCPCS: 93246

== ENCOUNTER → 2023-06-11 09:25 | Outpatient (BNV) | payer MEDICARE, SELFPAY | PROVIDERS: PCP Family Medicine; Visit Provider Internal Medicine Cardiovascular Disease | DX: I48.0 Paroxysmal atrial fibrillation (principal) | CPT/HCPCS: 93248 ==

== ENCOUNTER → 2023-09-10 14:49 | Outpatient (BNVA) | payer MEDICARE, SELFPAY | PROVIDERS: PCP Family Medicine; Visit Provider Internal Medicine ==

== ENCOUNTER 2023-10-04 09:48 | Outpatient (AMB) | payer MEDICARE, SELFPAY ==
--- NOTE | 2023-10-04 10:04 | AM.OFFVISNUR ---
Intake Intake Visit Reasons: EKG Allergies alendronate sodium [From Fosamax] Allergy (Mild, Verified 05/24/23 13:45) Rash calcitriol Allergy (Unknown, Verified 05/24/23 13:45) Unknown amitriptyline Adverse Reaction (Severe, Verified 05/24/23 13:45) SVT morphine Adverse Reaction (Unknown, Verified 05/24/23 13:45) Hypotension Sulfa (Sulfonamide Antibiotics) Adverse Reaction (Unknown, Verified 05/24/23 13:45) tooth pain Nursing Note PT is on Amiodarone 400 mg PT has no chest pain only some SOB with Activity EKG is left on Proviers desk for review Office Procedures EKG [id number], Complete Coding CPT Codes EKG - CPT: 14420-[id number], Complete ([id number])
== END 2023-10-04 10:08 | disposition home or self-care (01) ==
PROVIDERS: PCP Family Medicine; Visit Provider Internal Medicine Cardiovascular Disease
DX: R94.31 Abnormal electrocardiogram [ECG] [EKG] (principal)
CPT/HCPCS: 93010

== ENCOUNTER 2023-10-04 09:48 | Outpatient (REF) | payer MEDICARE, SELFPAY ==
[2023-10-04 11:34] LABS: B Type Natriuretic Peptide 68 pg/mL (<100)
[2023-10-04 11:36] LABS: Anion Gap 14 (12-20); Blood Urea Nitrogen 14 mg/dL (9-16); Calcium 9.2 mg/dL (8.4-10.2); Carbon Dioxide 27 mmol/L (22-29); Chloride 106 mmol/L (96-108); Estimated Glomerular Filt Rate > 60; Glucose Random 92 mg/dL (60-115); Potassium 4.1 mmol/L (3.3-5.1); Sodium 143 mmol/L (135-145)
== END 2023-10-04 09:49 | disposition home or self-care (01) ==
LOC: HO.LAB 09:48
PROVIDERS: PCP Family Medicine; Visit Provider Internal Medicine Cardiovascular Disease
DX: I51.81 Takotsubo syndrome (principal); I48.0 Paroxysmal atrial fibrillation
CPT/HCPCS: 36415; 80048; 83880; 93005

== ENCOUNTER 2023-11-20 13:10 | Outpatient (AMB) | payer MEDICARE, SELFPAY ==
[2023-11-20 13:39] VITALS: BP 116/70; PULSE 53; BMI 34.4
--- NOTE | 2023-11-20 13:39 | A.OFFVIS_ITS ---
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 Required: No Accompanied by: Self / Same As Patient Allergies alendronate sodium [From Fosamax] Allergy (Mild, Verified 05/24/23 13:45) Rash calcitriol Allergy (Unknown, Verified 05/24/23 13:45) Unknown amitriptyline Adverse Reaction (Severe, Verified 05/24/23 13:45) SVT morphine Adverse Reaction (Unknown, Verified 05/24/23 13:45) Hypotension Sulfa (Sulfonamide Antibiotics) Adverse Reaction (Unknown, Verified 05/24/23 13 :45) tooth pain Medication List - Last Reconciled 11/20/23 by Francisco Crawford MD amiodarone 200 mg PO ONCE apixaban (Eliquis) 5 mg PO BID aripiprazole 10 mg PO BID duloxetine 20 mg PO .QD furosemide 40 mg PO DAILY hydrocodone-acetaminophen 5-325 mg 1 tab PO Q6H PRN levothyroxine 25 mcg PO DAILY metoprolol succinate ER 25 mg PO DAILY oxybutynin chloride ER 15 mg PO DAILY pravastatin 40 mg PO QPM pregabalin 200 mg PO BID HPI Comments Details: Max returns for follow-up. She has a history of paroxysmal atrial fibrillation with a history of ablation in the past. She was taking amiodarone/Coreg and had a markedly prolonged QT interval but she was also on psychiatric medications the same time. Then these medications were stopped and she was only on metoprolol for some time. As she had recurrent atrial fibrillation, she was seen by EP and had 1 further ablation few days back. For medications, she is now on amiodarone and metoprolol. Remains on anticoagulation. No further palpitations. [facility]MERLY [facility] Medical History PAF (paroxysmal atrial fibrillation) QT prolongation Stress-induced cardiomyopathy Surgical History History of appendectomy H/O section History of endoscopy History of tubal ligation History of hysterectomy Family History Father Heart attack Mother Heart attack Brother H/O heart artery stent Social History Alcohol intake: current Alcohol intake frequency: a few times a month Patient Tobacco Use Status: Former Tobacco user Years Smoked: 10 +/- Review of Systems Const Denies chills, Denies fatigue, Denies fever(s), Denies weight gain and Denies weight loss ENT Denies dizziness Card Denies chest pain, Reports leg edema, Denies lightheadedness, Denies palpitations, Reports dyspnea on exertion, Denies orthopnea and Denies other Resp Denies cough and Reports dyspnea on exertion GI Denies hematochezia and Denies change in stool character Musc Denies abnormal gait, Denies muscle weakness, Denies numbness, Denies radiating pain into limb and Denies tingling Neuro Denies abnormal gait, Denies dizziness, Denies numbness and Denies tingling Endo Denies fatigue and Denies palpitations Physical Exam Vital Signs: Last Vital Signs Pulse 53 11/20/23 13:39 BP 116/70 11/20/23 13:39 BMI result Body Mass Index 34.4 Const General: comfortable and no acute distress Orientation/consciousness: patient oriented x3 HEENT Other: Unremarkable Head: Yes normal to inspection Neck Neck: Yes normal visual inspection Chest Chest palpation & inspection: normal inspection of the chest Resp Auscultation: clear to auscultation bilaterally Cardio Palpation: normal PMI Heart sounds: S1 normal heart sound present, S2 normal heart sound present, no gallops, no murmurs and no rubs GI Palpation (GI): Soft to palpation Back/Spine/Pelvis Other: unremarkable Skin General skin exam: no rashes or lesions noted Neuro General: patient oriented x3 Extrem General: Yes normal to inspection Psych Mental Status: mental status grossly normal Office Procedures EKG Details: EKG with sinus bradycardia at 53/Min; no significant ST-T changes; [place]. [id number], Complete Assessment & Plan Assessment & Plan (1) PAF (paroxysmal atrial fibrillation): Code(s): I48.0 - Paroxysmal atrial fibrillation Category: Medical Plan: Status post pulmonary vein isolation 2018; repeat ablation 10/2023. May keep amiodarone for 3 months total and then most likely will stop. We will check with PCP for any TSH values. She is concerned about slow heart rates and hence hold off on metoprolol for the time being. When we stop the amiodarone, may resume metoprolol that time. She has tried Multaq in the past but apparently was not very beneficial. Continue anticoagulation. Holter in 3 months. (2) Stress-induced cardiomyopathy: Code(s): I51.81 - Takotsubo syndrome Category: Medical Plan: In the most recent echocardiogram, LVEF 60-65%. Reported moderate diastolic dysfunction but E' values seem to be in the normal range. No evidence of pulmonary hypertension. In the prior echocardiogram from [facility], LVEF was 51%. Basal to mid inferior wall described to be hypokinetic. Described to have improvement in biventricular function compared to before. In the discharge summary from [facility], described to have angiographically normal coronary arteries. Overall, remains stable. Continue diuretics. Not suitable for other medications due to low blood pressure issues. (3) QT prolongation: Code(s): R94.31 - Abnormal electrocardiogram [ECG] [EKG] Category: Medical Plan: Corrected QT as much as 590 milliseconds while on amiodarone as well as Coreg, psychiatric medications. Then normalized. Can be followed periodically on EKGs. Orders: Orders ECG 3 day holter monitor 3 Months I48.0 - Paroxysmal atrial fibrillation Coding Level of Care Code Est Pt Level 4 (66175) Diagnoses PAF (paroxysmal atrial fibrillation) I48.0 Stress-induced cardiomyopathy I51.81 QT prolongation R94.31 CPT Codes EKG - CPT: 85001-[id number], Complete ([id number])
== END 2023-11-20 14:06 | disposition home or self-care (01) ==
PROVIDERS: PCP Family Medicine; Visit Provider Internal Medicine
DX: I48.0 Paroxysmal atrial fibrillation (principal); I51.81 Takotsubo syndrome; R94.31 Abnormal electrocardiogram [ECG] [EKG]
CPT/HCPCS: 93010; 99214

== ENCOUNTER → 2023-11-20 13:10 | Outpatient (BNVA) | payer MEDICARE, SELFPAY | PROVIDERS: PCP Family Medicine; Visit Provider Internal Medicine | DX: I48.0 Paroxysmal atrial fibrillation (principal); I51.81 Takotsubo syndrome; R94.31 Abnormal electrocardiogram [ECG] [EKG]; Z79.01 Long term (current) use of anticoagulants | CPT/HCPCS: 93005; 99212 ==

== ENCOUNTER → 2024-02-20 11:13 | Outpatient (REF) | payer MEDICARE, SELFPAY ==
--- NOTE | 2024-02-20 11:16 | HM_ITS ---
Conclusion: 1. Patient was monitored for total period of 2 days and 23 hours 2. Baseline was normal sinus rhythm with average heart of 65 beats per minute 3. No significant pauses noted 4. Frequent PVCs noted with total burden of 4.2% 5. No patient reported events MTDD
== END ==
LOC: HO.CARD 11:13
PROVIDERS: PCP Family Medicine; Visit Provider Internal Medicine
DX: I48.0 Paroxysmal atrial fibrillation (principal)
CPT/HCPCS: 93242

== ENCOUNTER → 2024-02-20 11:16 | Outpatient (BNV) | payer MEDICARE, SELFPAY | PROVIDERS: PCP Family Medicine; Visit Provider Internal Medicine Cardiovascular Disease | DX: I49.3 Ventricular premature depolarization (principal) | CPT/HCPCS: 93244 ==

== ENCOUNTER 2024-02-26 13:47 | Outpatient (AMB) | payer MEDICARE, SELFPAY ==
[2024-02-26 14:05] VITALS: BP 128/80; PULSE 51; BMI 35.0
--- NOTE | 2024-02-26 14:05 | A.OFFVIS_ITS ---
Vital Signs 02/26/24 14:05 Height 5 ft 1 in Weight 185 lb 3.013 oz BMI 35.0 BP 128/80 Blood Pressure Location Lt brachial Position Sitting Pulse 51 Pulse Source Monitor Intake Visit Reasons: 3 mth f/up Allergies alendronate sodium [From Fosamax] Allergy (Mild, Verified 05/24/23 13:45) Rash calcitriol Allergy (Unknown, Verified 05/24/23 13:45) Unknown amitriptyline Adverse Reaction (Severe, Verified 05/24/23 13:45) SVT morphine Adverse Reaction (Unknown, Verified 05/24/23 13:45) Hypotension Sulfa (Sulfonamide Antibiotics) Adverse Reaction (Unknown, Verified 05/24/23 13:45) tooth pain Medication List - Last Reconciled 02/26/24 by Francisco Crawford MD amiodarone 200 mg PO ONCE apixaban (Eliquis) 5 mg PO BID aripiprazole 10 mg PO BID duloxetine 20 mg PO .QD furosemide 40 mg PO DAILY hydrocodone-acetaminophen 5-325 mg 1 tab PO Q6H PRN levothyroxine 25 mcg PO DAILY metoprolol succinate ER 25 mg PO DAILY oxybutynin chloride ER 15 mg PO DAILY pravastatin 40 mg PO QPM pregabalin 200 mg PO BID HPI Comments Details: Max returns for follow-up. History of paroxysmal atrial fibrillation and has had an ablation. She was taking amiodarone/Coreg and had a markedly prolonged QT interval but she was also on psychiatric medications the same time. Then these medications were stopped and she was only on metoprolol for some time. As she had recurrent atrial fibrillation, she was seen by EP and had one further ablation in october 2023. For medications, she is now on amiodarone and metoprolol. Remains on anticoagulation. She is having some bronchitis type symptoms in the last few days but otherwise feels fine. [facility] Medical History PAF (paroxysmal atrial fibrillation) QT prolongation Stress-induced cardiomyopathy Surgical History History of appendectomy H/O section History of endoscopy History of tubal ligation History of hysterectomy Family History Father Heart attack Mother Heart attack Brother H/O heart artery stent Social History Alcohol intake: current Alcohol intake frequency: a few times a month Patient Tobacco Use Status: Former Tobacco user Years Smoked: 10 +/- Review of Systems Const Denies weakness ENT Denies dizziness Card Denies chest pain, Denies chest pain with activity, Denies syncope, Denies rapid heart rate, Denies pedal edema, Denies edema, Denies leg edema, Denies lightheadedness, Denies palpitations, Denies dyspnea, Denies dyspnea on exertion and Denies orthopnea Resp Denies cough, Denies dyspnea and Denies dyspnea on exertion GI Denies hematochezia and Denies change in stool character Musc Denies abnormal gait, Denies muscle cramps, Denies muscle weakness, Denies numbness, Denies radiating pain into limb and Denies tingling Neuro Denies abnormal gait, Denies dizziness, Denies syncope, Denies numbness, Denies tingling and Denies weakness Endo Denies palpitations Physical Exam Vital Signs: Last Vital Signs Pulse 51 02/26/24 14:05 BP 128/80 02/26/24 14:05 BMI result Body Mass Index 35.0 Const General: comfortable and no acute distress Orientation/consciousness: patient oriented x3 HEENT Other: Unremarkable Head: Yes normal to inspection Neck Neck: Yes normal visual inspection Chest Chest palpation & inspection: normal inspection of the chest Resp Auscultation: clear to auscultation bilaterally Cardio Palpation: normal PMI Heart sounds: S1 normal heart sound present, S2 normal heart sound present, no gallops, no murmurs and no rubs GI Palpation (GI): Soft to palpation Back/Spine/Pelvis Other: unremarkable Skin General skin exam: no rashes or lesions noted Neuro General: patient oriented x3 Extrem General: Yes normal to inspection Psych Mental Status: mental status grossly normal Office Procedures EKG Details: EKG with sinus bradycardia at 51/Min; no significant ST-T changes; rightward axis; [place]. [id number], Complete Assessment & Plan Assessment & Plan (1) PAF (paroxysmal atrial fibrillation): Code(s): I48.0 - Paroxysmal atrial fibrillation Category: Medical Plan: Status post pulmonary vein isolation 2018; repeat ablation 10/2023. Stop amiodarone. Continue metoprolol. Continue anticoagulation. In the past, has taken Multaq but apparently not very beneficial. (2) Stress-induced cardiomyopathy: Code(s): I51.81 - Takotsubo syndrome Category: Medical Plan: In the last echocardiogram, LVEF 60-65%. Reported moderate diastolic dysfunction but E' values seem to be in the normal range. No evidence of pulmonary hypertension. In the prior echocardiogram from [facility], LVEF was 51%. Basal to mid inferior wall described to be hypokinetic. Described to have improvement in biventricular function compared to before. In the discharge summary from [facility], described to have angiographically normal coronary arteries. Continue diuretics. Not suitable for other medications due to low blood pressure issues. (3) QT prolongation: Code(s): R94.31 - Abnormal electrocardiogram [ECG] [EKG] Category: Medical Plan: Corrected QT as much as 590 milliseconds while on amiodarone as well as Coreg, psychiatric medications. Then normalized. Can be followed periodically on EKGs. Coding Level of Care Code Est Pt Level 4 (03799) Diagnoses PAF (paroxysmal atrial fibrillation) I48.0 Stress-induced cardiomyopathy I51.81 QT prolongation R94.31 CPT Codes EKG - CPT: 21228-[id number], Complete ([id number])
== END 2024-02-26 14:36 | disposition home or self-care (01) ==
LOC: HO.HCS 13:48
PROVIDERS: PCP Family Medicine; Visit Provider Internal Medicine
DX: I48.0 Paroxysmal atrial fibrillation (principal); I51.81 Takotsubo syndrome; R94.31 Abnormal electrocardiogram [ECG] [EKG]
CPT/HCPCS: 93010; 99214

== ENCOUNTER → 2024-02-26 13:47 | Outpatient (BNVA) | payer MEDICARE, SELFPAY | PROVIDERS: PCP Family Medicine; Visit Provider Internal Medicine | DX: I48.0 Paroxysmal atrial fibrillation (principal); I51.81 Takotsubo syndrome; R94.31 Abnormal electrocardiogram [ECG] [EKG] | CPT/HCPCS: 93005; 99212 ==

== ENCOUNTER 2024-03-07 12:54 | Outpatient (REF) | payer MEDICARE, SELFPAY ==
[2024-03-07 13:27] LABS: MANUAL DIFF FLAG NO
[2024-03-07 14:27] LABS: Basophils Absolute Auto 0.1 X10*3/uL (0.0-0.2); Basophils Percent Auto 0.7 % (0-2); Eosinophils Absolute Auto 0.4 X10*3/uL (0.0-0.4); Eosinophils Percent Auto 5.1 % (0-4); Hematocrit 34.8 % (37.0-47.0); Hemoglobin 11.8 g/dl (12.0-16.0); Imm Gran Abs Auto 0.03 X10*3/uL (0.00-0.03); Imm Gran Pct Auto 0.4 % (0.0-0.4); Lymphocytes Absolute Auto 1.7 X10*3/uL (1.2-4.9); Lymphocytes Percent Auto 23.4 % (20-40); Mean Corpuscular HGB Conc 33.9 g/dl (31.0-35.0); Mean Corpuscular Hemoglobin 30.6 pg (27.0-33.0); Mean Corpuscular Volume 90.4 fL (80.0-98.0); Mean Platelet Volume 9.1 fL (9.4-12.3); Monocytes Absolute Auto 0.7 X10*3/uL (0.1-1.2); Monocytes Percent Auto 9.8 % (2-11); Neutrophils Absolute Auto 4.5 x10*3/uL (2.0-8.3); Neutrophils Percent Auto 60.6 % (45-73); Platelet Count 289 X10*3/uL (160-400); Red Blood Count 3.85 X10*6/uL (4.20-5.50); Red Cell Distribution Width 13.8 % (11.0-16.0); White Blood Count 7.4 X10*3/uL (4.8-10.8)
[2024-03-07 15:26] LABS: Alanine Aminotransferase 20 U/L (0-31); Albumin Level 4.2 g/dL (3.5-5.0); Alkaline Phosphatase 71 U/L (39-117); Anion Gap 14 (12-20); Aspartate Amino Transferase 31 U/L (5-31); Bilirubin Total 0.5 mg/dL (0.0-1.0); Blood Urea Nitrogen 11 mg/dL (9-16); Calcium 9.6 mg/dL (8.4-10.2); Carbon Dioxide 30 mmol/L (22-29); Chloride 98 mmol/L (96-108); Estimated Glomerular Filt Rate > 60; Glucose Random 91 mg/dL (60-115); Potassium 3.4 mmol/L (3.3-5.1); Sodium 139 mmol/L (135-145); Total Protein 7.1 g/dL (6.5-8.0)
[2024-03-07 15:31] LABS: B Type Natriuretic Peptide 25 pg/mL (<100)
== END 2024-03-07 12:55 | disposition home or self-care (01) ==
LOC: HO.LAB 12:54
PROVIDERS: PCP Family Medicine; Visit Provider Nurse Practitioner Family
DX: R60.9 Edema, unspecified (principal); I48.0 Paroxysmal atrial fibrillation
CPT/HCPCS: 36415; 80053; 83880; 85025

== ENCOUNTER 2024-08-27 13:10 | Outpatient (AMB) | payer MEDICARE, SELFPAY ==
[2024-08-27 13:29] VITALS: BP 120/70; PULSE 70; BMI 33.3
--- NOTE | 2024-08-27 13:29 | A.OFFVIS_ITS ---
Vital Signs 08/27/24 13:29 Height 5 ft 1 in Weight 176 lb 5.917 oz BMI 33.3 BP 120/70 Blood Pressure Location Lt brachial Position Sitting Pulse 70 Pulse Source Pulse Oximeter Intake Visit Reasons: r/s 08/26/24 6 mos followup Allergies alendronate sodium [From Fosamax] Allergy (Mild, Verified 05/24/23 13:45) Rash calcitriol Allergy (Unknown, Verified 05/24/23 13:45) Unknown amitriptyline Adverse Reaction (Severe, Verified 05/24/23 13:45) SVT morphine Adverse Reaction (Unknown, Verified 05/24/23 13:45) Hypotension Sulfa (Sulfonamide Antibiotics) Adverse Reaction (Unknown, Verified 05/24/23 13:45) tooth pain Medication List - Last Reconciled 08/27/24 by Francisco Crawford MD apixaban (Eliquis) 5 mg PO BID aripiprazole 10 mg PO BID duloxetine 20 mg PO .QD furosemide 40 mg PO DAILY hydrocodone-acetaminophen 5-325 mg 1 tab PO Q6H PRN levothyroxine 25 mcg PO DAILY metoprolol succinate ER 25 mg PO DAILY oxybutynin chloride ER 15 mg PO DAILY pravastatin 40 mg PO QPM pregabalin 200 mg PO BID HPI Comments Details: Max returns for follow-up. She has had paroxysmal atrial fibrillation and underwent ablation in 2018 and again in 2023. Currently only on beta-blockers. On anticoagulation. There is also history of prolonged QT in the context of taking amiodarone along with psychiatric medications. Overall, she is generally okay from cardiac. Rare palpitations. Some shortness of breath with activity but not new. No angina. She has got some swallowing issues and she states she has achalasia. [facility] Medical History PAF (paroxysmal atrial fibrillation) QT prolongation Stress-induced cardiomyopathy Surgical History History of appendectomy H/O section History of endoscopy History of tubal ligation History of hysterectomy Family History Father Heart attack Mother Heart attack Brother H/O heart artery stent Social History Alcohol intake: current Alcohol intake frequency: a few times a month Patient Tobacco Use Status: Former Tobacco user Years Smoked: 10 +/- Review of Systems Const Denies weakness ENT Denies dizziness Card Denies chest pain, Denies chest pain with activity, Denies syncope, Denies rapid heart rate, Denies pedal edema, Denies edema, Denies leg edema, Denies lightheadedness, Denies palpitations, Denies dyspnea, Denies dyspnea on exertion and Denies orthopnea Resp Denies cough, Denies dyspnea and Denies dyspnea on exertion GI Denies hematochezia and Denies change in stool character Musc Denies abnormal gait, Denies muscle cramps, Denies muscle weakness, Denies numbness, Denies radiating pain into limb and Denies tingling Neuro Denies abnormal gait, Denies dizziness, Denies syncope, Denies numbness, Denies tingling and Denies weakness Endo Denies palpitations Physical Exam Vital Signs: Last Vital Signs Pulse 70 08/27/24 13:29 BP 120/70 08/27/24 13:29 BMI result Body Mass Index 33.3 Const General: comfortable and no acute distress Orientation/consciousness: patient oriented x3 HEENT Other: Unremarkable Head: Yes normal to inspection Neck Neck: Yes normal visual inspection Chest Chest palpation & inspection: normal inspection of the chest Resp Auscultation: clear to auscultation bilaterally Cardio Palpation: normal PMI Heart sounds: S1 normal heart sound present, S2 normal heart sound present, no gallops, no murmurs and no rubs GI Palpation (GI): Soft to palpation Back/Spine/Pelvis Other: unremarkable Skin General skin exam: no rashes or lesions noted Neuro General: patient oriented x3 Extrem General: Yes normal to inspection Psych Mental Status: mental status grossly normal Assessment & Plan Assessment & Plan (1) PAF (paroxysmal atrial fibrillation): Code(s): I48.0 - Paroxysmal atrial fibrillation Category: Medical Plan: Status post pulmonary vein isolation 2018; repeat ablation 2023. Off amiodarone. Continue metoprolol. Continue anticoagulation. In the past, has taken Multaq but apparently not very beneficial. (2) Stress-induced cardiomyopathy: Code(s): I51.81 - Takotsubo syndrome Category: Medical Plan: In the last echocardiogram, LVEF 60-65%. Reported moderate diastolic dysfunction but E' values seem to be in the normal range. No evidence of pulmonary hypertension. In the prior echocardiogram from [facility], LVEF was 51%. Basal to mid inferior wall described to be hypokinetic. Described to have improvement in biventricular function compared to before. In the discharge summary from [facility], described to have angiographically normal coronary arteries. Continue diuretics. Not suitable for other medications due to low blood pressure issues. (3) QT prolongation: Code(s): R94.31 - Abnormal electrocardiogram [ECG] [EKG] Category: Medical Plan: Corrected QT as much as 590 milliseconds while on amiodarone as well as Coreg, psychiatric medications. Then normalized. Can be followed periodically on EKGs. Plan Discussion Notes During today?s visit, we reviewed the previous cardiac interventions, specifically the two ablations done in 2018 and 2023. I informed the patient that current management with metoprolol appears sufficient, noting the absence of atrial fibrillation recurrence. Occasional brief palpitations were deemed insignificant, not warranting additional medication at this time. The importance of monitoring and notifying any escalation in symptoms was emphasized. Any changes in respiratory status should prompt a reassessment. Patient was informed and verbally consented to the use of an ambient scribe for clinic note documentation during this visit. Patient Instructions: - Continue taking metoprolol as prescribed. - Monitor for any changes in heart rhythm and contact us if symptoms worsen. - Use your albuterol and nebulizer as needed for COPD symptoms. - Report any new or worsening shortness of breath or respiratory symptoms. - Follow up in six months or sooner if necessary. Coding Level of Care Code Est Pt Level 4 (70336) Complex EM visit Add On G2211 Diagnoses PAF (paroxysmal atrial fibrillation) I48.0 Stress-induced cardiomyopathy I51.81 QT prolongation R94.31
== END 2024-08-27 13:41 | disposition home or self-care (01) ==
LOC: HO.HCS 13:10
PROVIDERS: PCP Family Medicine; Visit Provider Internal Medicine
DX: I48.0 Paroxysmal atrial fibrillation (principal); I51.81 Takotsubo syndrome; R94.31 Abnormal electrocardiogram [ECG] [EKG]
CPT/HCPCS: 99214; G2211

== ENCOUNTER → 2024-08-27 13:10 | Outpatient (BNVA) | payer MEDICARE, SELFPAY | PROVIDERS: PCP Family Medicine; Visit Provider Internal Medicine | DX: I48.0 Paroxysmal atrial fibrillation (principal); I51.81 Takotsubo syndrome; R94.31 Abnormal electrocardiogram [ECG] [EKG] | CPT/HCPCS: 99212 ==

== ENCOUNTER 2025-02-26 13:24 | Outpatient (AMB) | payer MEDICARE, SELFPAY ==
[2025-02-26 13:47] VITALS: BP 118/60; PULSE 79; BMI 32.1
--- NOTE | 2025-02-26 13:47 | MHC.OFFVIS ---
Vital Signs 02/26/25 13:47 Height 5 ft 1 in Weight 169 lb 12.095 oz BMI 32.1 BP 118/60 Blood Pressure Location Lt brachial Position Sitting Pulse 79 Pulse Source Monitor Intake Visit Reasons: 6 mth f/up Allergies alendronate sodium (From Fosamax) Allergy (Mild, Verified 05/24/23 13:45) Rash calcitriol Allergy (Unknown, Verified 05/24/23 13:45) Unknown amitriptyline Adverse Reaction (Severe, Verified 05/24/23 13:45) SVT morphine Adverse Reaction (Unknown, Verified 05/24/23 13:45) Hypotension Sulfa (Sulfonamide Antibiotics) Adverse Reaction (Unknown, Verified 05/24/23 13:45) tooth pain Medication List - Last Reconciled 02/26/25 by Francisco Crawford MD apixaban (Eliquis) 5 mg PO BID aripiprazole 10 mg PO BID duloxetine 20 mg PO .QD furosemide 40 mg PO DAILY hydrocodone-acetaminophen 5-325 mg 1 tab PO Q6H PRN levothyroxine 25 mcg PO DAILY metoprolol succinate ER 25 mg PO DAILY oxybutynin chloride ER 15 mg PO DAILY pravastatin 40 mg PO QPM pregabalin 200 mg PO BID HPI Comments Details: Max returns for follow-up. She has had paroxysmal atrial fibrillation and underwent ablation in 2018 and again in 2023. Currently only on beta-blockers. On anticoagulation. There is also history of prolonged QT in the context of taking amiodarone along with psychiatric medications. Overall, she is just about the same as before. For the most part she is fine. Breathing is under control. Leg swelling off and on but seems dependent edema than cardiac. She still has some GI issues related to swallowing. [facility] Medical History PAF (paroxysmal atrial fibrillation) QT prolongation Stress-induced cardiomyopathy Surgical History History of appendectomy H/O section History of endoscopy History of tubal ligation History of hysterectomy Family History Father Heart attack Mother Heart attack Brother H/O heart artery stent Social History Alcohol intake: current Alcohol intake frequency: a few times a month Patient Tobacco Use Status: Former Tobacco user Years Smoked: 10 +/- Review of Systems Const Denies weakness ENT Denies dizziness Card Denies chest pain, Denies chest pain with activity, Denies syncope, Denies rapid heart rate, Denies pedal edema, Denies edema, Denies leg edema, Denies lightheadedness, Denies palpitations, Denies dyspnea, Denies dyspnea on exertion and Denies orthopnea Resp Denies cough, Denies dyspnea and Denies dyspnea on exertion GI Denies hematochezia and Denies change in stool character Musc Denies abnormal gait, Denies muscle cramps, Denies muscle weakness, Denies numbness, Denies radiating pain into limb and Denies tingling Neuro Denies abnormal gait, Denies dizziness, Denies syncope, Denies numbness, Denies tingling and Denies weakness Endo Denies palpitations Physical Exam Vital Signs: Last Vital Signs Pulse 79 02/26/25 13:47 BP 118/60 02/26/25 13:47 BMI result Body Mass Index 32.1 Const General: comfortable and no acute distress Orientation/consciousness: patient oriented x3 HEENT Other: Unremarkable Head: Yes normal to inspection Neck Neck: Yes normal visual inspection Chest Chest palpation & inspection: normal inspection of the chest Resp Auscultation: clear to auscultation bilaterally Cardio Palpation: normal PMI Heart sounds: S1 normal heart sound present, S2 normal heart sound present, no gallops, no murmurs and no rubs GI Palpation (GI): Soft to palpation Back/Spine/Pelvis Other: unremarkable Skin General skin exam: no rashes or lesions noted Neuro General: patient oriented x3 Extrem Other: 1+ edema, bilateral General: Yes normal to inspection Psych Mental Status: mental status grossly normal Office Procedures EKG Details: EKG with sinus rhythm at 79/Min; sinus arrhythmias; no ischemic changes; [place] [id number], Complete Assessment & Plan Assessment & Plan (1) PAF (paroxysmal atrial fibrillation): Code(s): I48.0 - Paroxysmal atrial fibrillation Category: Medical Plan: Status post pulmonary vein isolation 2018; repeat ablation 2023. Off Amiodarone. Continue Metoprolol. Continue anticoagulation. In the past, has taken Multaq but apparently not very beneficial. (2) Stress-induced cardiomyopathy: Code(s): I51.81 - Takotsubo syndrome Category: Medical Plan: In the last echocardiogram, LVEF 60-65%. Reported moderate diastolic dysfunction but E' values seem to be in the normal range. No evidence of pulmonary hypertension. In the prior echocardiogram from [facility], LVEF was 51%. Basal to mid inferior wall described to be hypokinetic. Described to have improvement in biventricular function compared to before. In the discharge summary from [facility], described to have angiographically normal coronary arteries. Continue diuretics. Not suitable for other medications due to low blood pressure issues. (3) QT prolongation: Code(s): R94.31 - Abnormal electrocardiogram [ECG] [EKG] Category: Medical Plan: Corrected QT as much as 590 milliseconds while on amiodarone as well as Coreg, psychiatric medications. Then normalized. Can be followed periodically on EKGs. Plan Discussion Notes We addressed the management of her edema, recommending leg elevation and compression stockings to alleviate symptoms. For her upcoming dental procedure, we agreed on discontinuing Eliquis two days prior to minimize bleeding risk. Patient was informed and verbally consented to the use of an ambient scribe for clinic note documentation during this visit. Patient Instructions: - Elevate your legs as much as possible to reduce swelling. - Use compression stockings to help manage edema. - Discontinue Eliquis two days before your dental procedure to minimize bleeding risk. Coding Level of Care Code Est Pt Level 4 (67585) Complex EM visit Add On G2211 Diagnoses PAF (paroxysmal atrial fibrillation) I48.0 Stress-induced cardiomyopathy I51.81 QT prolongation R94.31 CPT Codes EKG - CPT: 72025-Xannisrncgucxisfy, Complete ([id number])
--- OUTSIDE RECORDS SUMMARY | 2025-02-26 16:29 | XMS_ITS | Encounter Summary ---
Author Organization [facility] Address [address] [place] [phone] Phone Care Team Providers Care Director Machine Name Role Phone Man Cochran NP Primary Care Provider [phone] Angie Briggs MD Primary Care Provider [phone] Angie Briggs MD Primary Care Provider [phone] True Liz MD Unavailable [phone] Desilets, Winston Vincent MD Unavailable [phone] Encounter Details Date Type Department Care Team (Latest Contact Info) Description 11/29/2020 Ancillary Orders Virtual Department [address] [place] [address] Man Cochran NP [address] [place] [address] [email or web address] Age-related osteoporosis without current pathological fracture Social History Tobacco Use Types Packs/Day Years Used Date Smoking Tobacco: Never Assessed Comments No Sex and Gender Information Value Date Recorded Sex Assigned at Female 12/20/2020 12:45 PM EDT Legal Sex Female 7:43 PM EST Gender Identity Female 12/20/2020 12:45 PM EDT Sexual Orientation Straight 02/14/2021 9: 53 AM EDT documented as of this encounter Plan of Treatment Upcoming Encounters Date Type Department Care Team (Late st Contact Info) Description 12/25/2024 Procedure Pass [facility], Ct Scan - [address] [address] 03/10/2025 [facility] [address] [facility], 4th [place] [address] 03/25/2025 6:00 PM EST Appointment [facility], Bone Density - [address] [address] Angie Briggs MD [address] [place] [id number] 05/01/2025 10:30 AM EST Appointment [facility], Ct Scan - [address] [address] True Liz MD [address] [place] [phone] 05/04/2025 9:30 AM EST Office Visit [facility] Pulmonary, Allergy and Critical Care Medicine [address] [place] [address] True Liz MD [address] [place] [id number] documented as of this encounter Results * BD DXA AXIAL (SPINE) WITH HIP (01/06/2021 2:19 PM EDT) Anatomical Region Laterality Modality Bone Density Bone Density 01/06/2021 2:31 PM EDT Impressions 01/06/2021 2:34 PM EDT 1.Normal lumbar spine bone density with mild increase in bone density since 2014. 2.Continued bilateral total hip osteopenia. Minimal increase in right hip bone density. Narrative 01/06/2021 2:34 PM EDT COMPARISON: 06/09/2014. BONE DENSITY FINDINGS: History: This is a 70-year-old postmenopausal female. Evaluation of the lumbar spine and hips was performed and felt to be technically adequate. L1 vertebroplasty is unchanged. L3-L4 vertebral bodies total bone mineral density was calculated at 1.084 gm/cm2 with a T-score of -0.2 falling within the WHO classification of normal. Z-score of 2.2.25% increase in bone density which is statistically significant. Right femoral neck bone mineral density was calculated at 0.603 gm/cm2 with a T- score of -2.2 falling within the WHO classification of osteopenia. Z-score of -0.3. Total Right hip bone mineral density was calculated at 0.7-3 gm/cm2 with a T- score of -1.8 falling within the WHO classification of osteopenia. Z-score of -0.2. 6.2% increase in bone density which is statistically significant Left femoral neck bone mineral density was calculated at 0.548 gm/cm2 with a T- score of -2.7 falling within the WHO classification of osteoporosis. Z-score of -0.8. Total Left hip bone mineral density was calculated at 0.758 gm/cm2 with a T- score of -1.5 falling within the WHO classification of osteopenia. Z-score of 0.1. Procedure Note Hong Reynolds MD - 01/06/2021 COMPARISON: 06/09/2014. BONE DENSITY FINDINGS: History: This is a 70-year-old postmenopausal female. Evaluation of the lumbar spine and hips was performed and felt to betechnically adequate. L1 vertebroplasty is unchanged. L3-L4 vertebral bodies total bone mineral density was calculated at 1.084gm/cm2 with a T-score of -0.2 falling within the WHO classification ofnormal. Z-score of 2.2.25% increase in bone density which isstatistically significant. Right femoral neck bone mineral density was calculated at 0.603 gm/mk0ipgo a T- score of -2.2 falling within the WHO classification ofosteopenia. Z-score of -0.3. Total Right hip bone mineral density was calculated at 0.7-3 gm/cm2 with aT- score of -1.8 falling within the WHO classification of osteopenia.Z-score of -0.2. 6.2% increase in bone density which is statisticallysignificant Left femoral neck bone mineral density was calculated at 0.548 gm/cm2 witha T- score of -2.7 falling within the WHO classification of osteoporosis.Z-score of -0.8. Total Left hip bone mineral density was calculated at 0.758 gm/cm2 with aT-score of -1.5 falling within the WHO classification of osteopenia.Z-score of 0.1. IMPRESSION: 1.Normal lumbar spine bone density with mild increase in bone densitysince 2014. 2.Continued bilateral total hip osteopenia. Minimal increase in right hipbone density. Man Cochran NP IMG BD BONE DENSITY DEXA Karuna l Result documented in this encounter Visit Diagnoses Diagnosis Age-related osteoporosis without current pathological fracture Age-related osteoporosis without current pathological fracture documented in this encounter Additional Health Concerns Infection Onset Date Last Indicated Resolved Time CoV-Risk 12/14/2020 12/20/2020 12/30/2020 1:22 AM EDT documented as of this encounter Care Teams Director Machine Relationship Specialty Start Date End Date Man Cochran NP [address] [place] [address] [email or web address] PCP - General Family Medicine 07/12/20 02/13/21 Angie Briggs MD [address] [place] [address] [email or web address] PCP - General Family Medicine 02/14/21 03/26/23 Angie Briggs MD [address] [place] [address] [email or web address] PCP - General Family Medicine 03/27/23 True Liz MD [address] [address] Intensive Care 07/17/23 Winsotn Laura MD [address] [place] [address] [place] [address] Gastroenterology 07/17/23 documented as of this encounter Additional Source Comments The information contained in this document represents components of the legal health record. It is not the complete legal health record.[facility]
--- OUTSIDE RECORDS SUMMARY | 2025-02-26 16:29 | XMS_ITS | Encounter Summary ---
Author Organization [facility] Address [address] [place] [address] Phone Care Team Providers Care Geophysical Laboratory Director Name Role Phone Man Cochran NP Primary Care Provider [phone] Angie Briggs MD Primary Care Provider [phone] Angie Briggs MD Primary Care Provider [phone] True Liz MD Unavailable [phone] Desilets, Winston Vincent MD Unavailable [phone] Encounter Details Date Type Department Care Team (Late st Contact Info) Description 11/25/2020 Ancillary Orders [facility] Department [address] [place] [address] Man Cochran NP [address] [place] [address] [email or web address] Social History Tobacco Use Types Packs/Day Years [...] st Contact Info) Description 12/25/2024 Procedure Pass [facility], Ct Scan - [facility] Hospital [address] [place] [address] 03/10/2025 Procedure Pass [facility] ROSALIND 4 ENDO DEPT [address] [facility], 4th [place] [address] 03/25/2025 6:00 PM EST Appointment [facility], Bone Density - [address] [address] Angie Briggs MD [address] [place] [address] [email or web address] 05/01/2025 10:30 AM EST Appointment [facility], Ct Scan - [address] [address] True Liz MD [address] [address] [email or web address] 05/04/2025 9:30 AM EST Office Visit [facility] [address] [place] [address] True Liz MD [address] [place] [address] [email or web address] documented as of this encounter Visit Diagnoses Not on filedocumented in this encounter Additional Health Concerns Infection Onset Date Last Indicated Resolved Time CoV-Risk 12/14/2020 12/20/2020 12/30/2020 1:22 AM EDT documented as of this encounter Care Teams Geophysical Laboratory Director Relationship Specialty Start Date End Date Man Cochran NP [address] [address] [email or web address] PCP - General Family Medicine 07/12/20 02/13/21 Angie Briggs MD [address] [address] [email or web address] PCP - General Family Medicine 02/14/21 03/26/23 Angie Briggs MD [address] [place] [address] [email or web address] PCP - General Family Medicine 03/27/23 True Liz MD [address] [place] [address] [email or web address] Intensive Care 07/17/23 Winston Laura MD [address] [place] [address] [place] [address] Gastroenterology 07/17/23 documented as of this encounter Additional Source Comments The information contained in this document represents components of the legal health record. It is not the complete legal health record.[facility]
--- OUTSIDE RECORDS SUMMARY | 2025-02-26 16:29 | XMS_ITS | Clinical Summary ---
Author Organization [facility] Address [address] [place] [address] Phone Care Team Providers Care Pin Sticker Name Role Phone Angie Briggs MD Primary Care Provider [phone] True Liz MD Unavailable [phone] Desilets, Winston Vincent MD Unavailable [phone] Allergies Active Allergy Reactions Criticality Noted Date Comments Alendronate Rash Low 05/01/2022 Calcitriol 05/01/2022 Other reaction(s): unknown Amitriptyline 12/20/2020 Morphine Other (See Comments) 12/20/2020 Sulfa (Sulfonamide Antibiotics) Other (See Comments) 12/20/2020 Medications ARIPiprazole (ABILIFY) 10 MG tablet Take 10 mg by mouth daily. Active pregabalin (LYRICA) 200 MG capsule Take 200 mg by mouth 2 (two) times a day. Active furosemide (LASIX) 20 MG tablet Take 40 mg by mouth. Now 8.3.23 Active apixaban (ELIQUIS) 5 mg tablet Take 5 mg by mouth 2 (two) times a day. Active vitamin E 1000 UNIT capsule Take 1,000 Units by mouth daily. Active ascorbic acid, vitamin C, (VITAMIN C) 1000 MG tablet Take 1,000 mg by mouth daily. Active cholecalciferol , vitamin D3, (VITAMIN D3 ORAL) Take 500 mg by mouth daily. Active pravastatin (PRAVACHOL) 40 MG tablet Take 40 mg by mouth daily. Active HYDROcodone-promise taminophen (NORCO) 7.5-325 mg per tablet Take 1 tablet by mouth every 6 (six) hours as needed for pain (specific location in comments). 5mg twice a dy Active MULTIVITAMIN ORAL Take by mouth. Activ e levothyroxine (SYNTHROID,LEVO THROID) 25 MCG tablet Take 25 mcg by mouth daily. 1 Active triamcinolone acetonide 0.5 % ointment Apply topically once a week. 15 g 3 1 Active metoprolol succinate (TOPROL-XL) 25 MG 24 hr tablet Take 1 tablet by mouth every morning. 3 Active oxyBUTYnin (DITROPAN XL) 15 MG 24 hr tablet Take 1 tablet by mouth every morning. 3 Active DULoxetine (CYMBALTA) 60 MG capsule Take 1 capsule by mouth every morning. 3 Active omeprazole (PRILOSEC) 20 MG capsuleIndicati ons:Achalasia TAKE 1 CAPSULE(20 MG) BY MOUTH TWICE DAILY BEFORE MEALS 60 capsule 2 4 Active amiodarone (PACERONE) 200 MG tablet Take 200 mg by mouth daily. 4 Active lidocaine 2 % Soln RINSE AND GARGLE 10 ML BY MOUTH EVERY 6 HOURS NEEDED FOR SORE THROAT OR PAIN OR MOUTH SORE PAIN Active fluticasone propion-salmete roL (AIRDUO RESPICLICK) 113-14 mcg/actuation inhaler Inhale 1 puff into the lungs 2 (two) times a day. 5 Active Active Problems Problem Noted Date Diagnosed Date Asthma-COPD overlap syndrome 05/02/2023 Lung nodule 11/30/2022 Achalasia 05/01/2022 Class 1 obesity 05/01/2022 Depressive disorder 05/01/2022 Fracture of lumbar vertebra 05/01/2022 Hyperlipidemia 05/01/2022 Vulvar abscess 02/17/2021 Overview (02/17/2021): S/p I&D 3 days ago; onset was after a much lower left vulvar bx 3 weeks prior to ER visit Assessment & Plan (02/17/2021 5:28 PM EDT): Healing with sig induratoin, recommend 14 days treatment, I sent additoinal rx and advised RTO 4 days Use a wet (with salt water) compress, not too hot to avoid burning skin Lichen sclerosus 01/19/2021 Overview (02/17/2021): asymmetric, pale, thickened bx of left lower perineum - lichen sclerosis Assessment & Plan (02/17/2021 1:51 PM EDT): Dx discussed, recommend the weekly topical steroid once the abscess has fully healed Assessment & Plan (01/19/2021 1:25 PM EDT): Care of bx area; if bening, use the topical steroid once weekly Acute coronary syndrome 12/20/2020 Assessment & Plan (12/20/2020 4:19 PM EDT): The patient denies any ongoing chest pain. She does have continued moderate work of breathing and oxygen requirement. EKG with results as noted per cardiology. She has significant elevation in high-sensitivity troponin values with downtrending delta change, and has been started on heparin ACS protocol. I suspect perhaps her episode of achalasia yesterday may have actually been her anginal equivalent. Transfer to [facility] for cardiac catheterization was attempted today, but unable to be completed due to full bed capacity. 1. Admit to the medical floor, continuous EKG monitoring, continuous pulse oximetry monitoring 2. Continue aspirin 325 mg daily 3. Start atorvastatin 80 mg nightly and check lipid panel and LFTs 4. Start metoprolol 25 mg every 8 hours as blood pressure tolerates 5. Continue heparin drip per ACS protocols, monitor anti-Xa levels and CBC 6. Echocardiogram to be completed later today or tomorrow morning 7. Patient will be kept n.p.o. after midnight for possible transfer and cardiac catheterization at [facility] tomorrow 8. Currently no chest pain, we will continue to evaluate. Diuresis as outlined below Acute congestive heart failure 12/20/2020 Assessment & Plan (12/20/2020 4:15 PM EDT): I suspect secondary to acute coronary syndrome. She is hemodynamically stable at this time. She still has moderate work of breathing on my evaluation with pulse oximetry ranging down to 88% on 4 L nasal cannula oxygen. 1. Admit to the medical floor, continuous EKG monitoring, continuous pulse oximetry monitoring 2. Monitor strict input and output and daily weights 3. Continue Lasix 40 mg IV twice daily, monitor renal function and electrolytes 4. Echocardiogram to be scheduled per Cardiology as above 5. 2 g sodium, 2000 cc fluid restricted, cardiac prudent diet 6. Titrate supplemental oxygen 7. Cardiology consultation appreciated 8. Would consider BiPAP and nitrates if worsening respiratory failure in the setting of congestive heart failure Chronic atrial fibrillation Assessment & Plan (12/20/2020 4:12 PM EDT): Currently the patient is in a normal sinus rhythm, with some tachycardia up to the low 100s. Continue amiodarone as prescribed. Hold Eliquis with heparin anticoagulation protocol for ACS. Community acquired pneumonia Assessment & Plan (12/20/2020 4:12 PM EDT): Patient has extensive right lung consolidation as read on chest x-ray. She does not describe fever or purulent sputum production, although did have an episode of achalasia yesterday which could be possible aspiration. This could also represent asymmetric pulmonary edema, but infectious infiltrate cannot be ruled out. SARS-CoV-2 RNA testing is negative, and the patient's pharyngeal symptoms have resolved from 3 days ago. Throat culture was negative. We will request sputum culture if she can expectorate. Check streptococcal and Legionella urinary antigens. Maintain enhanced respiratory isolation for now. Continue ceftriaxone 1 g IV daily and doxycycline 100 mg IV twice daily for now, with possible broadening to cover aspiration pathogens based on above studies and clinical course. Monitor CBC with differential and blood cultures. Chronic pain syndrome Assessment & Plan (12/20/2020 4:05 PM EDT): Continue duloxetine and pregabalin as prescribed. Continue Vicodin as needed. Encounters Date Type Department Care Team Description 01/06/2025 Telephone [facility] [address] [place] [address] True Liz MD 12/31/2024 Orders Only [facility] [address] [place] [address] Camryn Michaud MD 12/30/2024 Telephone [facility] [address] [facility], 5th [place] [address] Levar Cobos MD 12/26/2024 12:09 PM EDT - 12/26/2024 11:59 PM EDT Hospital Encounter [address] [address] Angie Briggs MD Discharge Disposition: Home or Self Care 12/25/2024 9:30 AM EDT Office Visit [facility] [address] [place] [address] True Liz MD Lung nodule; Asthma-COPD overlap syndrome; HERIBERTO (obstructive sleep apnea) 12/25/2024 Telephone [facility] [address] [place] [address] True Liz MD Sleep Study 01/04/2024 Procedure Pass [address] [address] from Last 3 Months Immunizations No known immunizations Family History Medical History Relation Comments No Known Problems Father No Known Problems Mother Breast cancer Paternal Grandmother Relation Status Comments Father Mother Paternal Grandmother Social History Tobacco Use Types Packs/Day Years Used Date Smoking Tobacco: Former Cigarettes Q uit: 1981 Smokeless Tobacco: Never Tobacco Cessation:Counseling Given: Not Answered Alcohol Use Standard Drinks/Week Comments Yes 2 (1 standard drink = 0.6 oz pur e alcohol) Education Answer Date Recorded Are you interested in more education? Not on jessy e 08/24/2022 Are you concerned about learning? Not on file 08/24/2022 No 08/24/2022 No 08/24/2022 Digital Access Answer Date Recorded No 09/25/2022 No 09/25/2022 Reliable internet access at home? Not on file 09/25/2022 Device with a working camera? Not on file Intimate Partner Violence Answer Date R ecorded Are you denied basic needs s uch as food, clothing, or medical care? No 06/07/2023 In the past 12 months have y ou been in a relationship with a person who hurts, threatens, or tries to control you? No 06/07/2023 Are you denied basic needs s uch as food, clothing, or medical care? No 06/07/2023 In the past 12 months have y ou been in a relationship with a person who hurts, threatens, or tries to control you? No 06/07/2023 Comments No Sex and Gender Information Value Date Recorded Sex Assigned at Female 12/20/2020 12:45 PM EDT Legal Sex Female 7:43 PM EST Gender Identity Female 12/20/2020 12:45 PM EDT Sexual Orientation Straight 02/14/2021 9: 53 AM EDT Last Filed Vital Signs Vital Sign Reading Time Taken Comments Blood Pressure 88/62 12/12/2023 1:11 PM EDT Pulse 68 12/25/2024 9:21 AM EDT Temperature 36.5 C (97.7 F) 12/25/2024 9:21 AM EDT Respiratory Rate 18 06/07/2023 11:31 AM EST Oxygen Saturation 97% 12/25/2024 9:21 AM EDT Inhaled Oxygen Concentration 50% 12/21/2020 3 :00 AM EDT Weight 78.7 kg (173 lb 9.6 oz) 12/25/2024 9:21 AM EDT Height 154.9 cm (5' 1 ) 12/25/2024 9:21 AM EDT Body Mass Index 32.8 12/25/2024 9:21 AM EDT Plan of Treatment Upcoming Encounters Date Type Department Care Team (Late st Contact Info) Description 12/25/2024 Procedure Pass [facility], Ct Scan - [address] [address] 03/10/2025 Procedure Pass [facility] ROSALIND 4 ENDO DEPT [address] [facility], 4th [place] [address] 03/25/2025 6:00 PM EST Appointment [facility], Bone Density - [address] [address] Agnie Briggs MD [address] [place] [address] 05/01/2025 10:30 AM EST Appointment [facility], Ct Scan - [address] [address] True Liz MD [address] [address] 05/04/2025 9:30 AM EST Office Visit [facility] [address] [place] [address] True Liz MD [address] [address] Health Maintenance Due Date Last Done Comments ALT LEVEL (ALANINE AMINOTRANSFERASE) 1949 LIPID PANEL 1949 TSH LEVEL 1949 DEPRESSION SCREENING 1961 HEPATITIS C SCREENING 1967 ZOSTER VACCINES (1 of 2) 1999 CREATININE LEVEL 12/20/2021 12/20/2020, 02/06/2019 INFLUENZA VACCINE (#1) 2024 , 02/28/2023, 02/13/2023, Additional history exists COVID-19 VACCINE ( season) 2024 02/21/2024, 02/13/2023, 03/30/2022, Additional history exists SMOKING Hx and SMOKELESS TOBACCO SCREENING 12/26/2025 12/26/2024 Adult Td,Tdap Booster 11/30/2031 11/29/2021 , 01/02/2012, 06/28/2006 OSTEOPOROSIS SCREENING INITIAL (ONE-TIME) Completed 01/06/2021 PNEUMOCOCCAL VACCINES (50+ years) Completed 02/04/2022, 03/07/2016, 01/02/2012 RSV VACCINE Completed 02/21/2024 HEPATITIS A VACCINES Aged Out No long er eligible based on patient's age to complete this topic HIB VACCINES Aged Out No longer eligi ble based on patient's age to complete this topic MENINGOCOCCAL VACCINES (ACWY) Aged Out No longer eligible based on patient's age to complete this topic MENINGOCOCCAL VACCINES (B) Aged Out N o longer eligible based on patient's age to complete this topic Medical Devices Not on file Procedures Procedure Name Priority Date/Time Associated Diagnosis Comments OUTSIDE PROCEDURE Routine 12/31/2024 3:2 4 PM EDT BI MAMMOGRAM SCREENING WITH TOMOSYNTHESIS WITH CAD (BILATERAL) Routine 12/26/2024 12:49 PM EDT Breast screening BD DXA AXIAL (SPINE) WITH HIP Routine 01/06/2021 2:19 PM EDT Age-related osteoporosis without current pathological fracture BASIC METABOLIC PANEL STAT 12/20/2020 1:16 PM EDT from Last 3 Months or Most Recently Relevant to Health Maintenance Results * Outside Procedure (12/31/2024 3:24 PM EDT) us Historical Provider MD PROCEDURE/MINOR SURGICAL PERFORMABLES Final Result * BI MAMMOGRAM SCREENING WITH TOMOSYNTHESIS WITH CAD (BILATERAL) (12/26/2024 12:49 PM EDT) Anatomical Region Laterality Modality Breast Left, Breast Right, Breast Bilateral Bila teral Mammography 12/30/2024 9:26 AM EDT Impressions 12/30/2024 10:00 AM EDT No mammographic evidence of malignancy in either breast. Annual screening mammography is recommended. BI-RADS 1 NEGATIVE The patient will be notified of the results and recommendations. Narrative 12/30/2024 10:00 AM EDT BI MAMMOGRAM SCREENING WITH TOMOSYNTHESIS WITH CAD (BILATERAL) Additional patient information: Screening. COMPARISON: Comparison is made with relevant prior imaging. Breast composition: There are scattered areas of fibroglandular density. FINDINGS: No abnormal masses, suspicious calcifications, or other significant findings are identified mammographically in either breast. Procedure Note Carlton Khan MD - 12/30/2024 BI MAMMOGRAM SCREENING WITH TOMOSYNTHESIS WITH CAD (BILATERAL) Additional patient information: Screening. COMPARISON: Comparison is made with relevant prior imaging. Breast composition: There are scattered areas of fibroglandular density. FINDINGS: No abnormal masses, suspicious calcifications, or other significantfindings are identified mammographically in either breast. IMPRESSION: No mammographic evidence of malignancy in either breast. Annual screening mammography is recommended. BI-RADS 1 NEGATIVE The patient will be notified of the results and recommendations. us Angie Briggs MD IMG MG EXAMS Final Resu lt * BD DXA AXIAL (SPINE) WITH HIP [...] bone mineral density was calculated at 0.603 gm/aa9gtft a T- score of -2.2 falling within [...] Minimal increase in right hipbone density. Man Lecours CREDIT SUPPORT COUNSELOR IMG BD BONE DENSITY DEXA Karuna l Result * (ABNORMAL) Basic metabolic panel (12/20/2020 1:16 PM EDT) SODIUM 139 133 - 146 mmol/L [facility] CHLORIDE 103 96 - 108 mmol/L [facility] POTASSIUM 3.5 3.3 - 5.1 mmol/L [facility] CO2 23 21 - 35 mmol/L [facility] BUN 12 6 - 19 mg/dL [facility] CREATININE 0.60 0.5 - 1.5 mg/dL [facility] GLUCOSE 128(H) 70 - 99 mg/dL [facility] CALCIUM 9.1 8.4 - 10.3 mg/dL [facility] EGFR 92 >59 mL/min/1.7 3m2 [facility] Comment:Estimated glomerular filtration rate calculated using the CKD-EPI equation. ANION GAP 17 10 - 20 mmol/L [facility] Blood 12/20/2020 1:16 PM EDT 12/20/2020 1:30 PM EDT Hong Mayorga MD LAB BLOOD ORDERAB LES Final Result [facility] [address] [place], [place] [id number] from Last 3 Months or Most Recently Relevant to Health Maintenance Insurance , [facility] [address] [place] [address] MEDICARE PART A & B [facility] MEDICARE SUPPLEMENT MEDICARE PART A & B [facility] MEDICARE SUPPLEMENT MEDICARE PART A & B Member Subscriber Plan / Payer (Ef fective 2013-Present) Name:Max Banks Member ID:[id number] Relation to Subscriber:Self Name:Max Banks Subscriber ID:[id number] Payer ID:[id number] Group ID:Not on file Type:Medicare Address: [employer] [address] MEDICARE SUPPLEMENT MEDICARE PART A & B [facility] MEDICARE SUPPLEMENT MEDICARE PART A & B Member Subscriber Plan / Payer (Ef fective 2013-Present) Name:Max Banks Member ID:[id number] Relation to Subscriber:Self Name:Max Banks Subscriber ID:[id number] Payer ID:[id number] Group ID:Not on file Type:Medicare Address: [employer] [address] MEDICARE SUPPLEMENT MEDICARE PART A & B [facility] MEDICARE SUPPLEMENT MEDICARE PART A [place] [id number] MEDICARE PART A & B MEDICARE SUPPLEMENT MEDICARE PART A & B [facility] MEDICARE SUPPLEMENT Advance Directives For more information, please contact: [phone] (9AM - 5PM [facility], Sunday-Sunday) * Full Code (Latest Code Status on File) Date Activated Date Inactivated Comments 12/20/2020 7:07 PM Question Answer Comments Code Status Confirmed With: Patient Care Teams Pin Sticker Relationship Specialty Start Date End Date Angie Briggs MD [address] [place] [address] PCP - General Family Medicine 03/27/23 True Liz MD [address] [place] [address] [email or web address] Intensive Care 07/17/23 Winston Laura MD [address] [place] [address] [place] [address] Gastroenterology 07/17/23 Additional Source Comments The information contained in this document represents components of the legal health record. It is not the complete legal health record.[facility]
--- OUTSIDE RECORDS SUMMARY | 2025-02-26 16:29 | XMS_ITS | Encounter Summary ---
Author Organization [facility] Address [address] [place] [address] Phone Care Team Providers Care Childhood Development Teacher Name Role Phone Man Cochran NP Primary Care Provider Angie Briggs MD Primary Care Provider [phone] Angie Briggs MD Primary Care Provider [phone] True Liz MD Unavailable [phone] Desilets, Winston Vincent MD Unavailable [phone] Encounter Details Date Type Department Care Team (Late st Contact Info) Description 11/24/2020 Procedure Pass [facility], Mamm[address] [address] Social History Tobacco Use Types Packs/Day Years [...] st Contact Info) Description 12/25/2024 Procedure Pass [facility], Ct Scan - [facility] [address] [place] [address] 03/10/2025 Procedure Pass [facility] 4 ENDO DEPT [address] [facility], 4th [place] [address] 03/25/2025 6:00 PM EST Appointment [facility], Bone Density - [address] [address] Angie Brgigs MD [address] [place] [address] 05/01/2025 10:30 AM EST Appointment [facility], Ct Scan - [address] [address] True Liz MD [address] [place] [address] [email or web address] 05/04/2025 9:30 AM EST Office Visit [facility] [address] [place] [address] True Liz MD [address] [place] [address] [email or web address] documented as of this encounter Visit Diagnoses Not on filedocumented in this encounter Additional Health Concerns Infection Onset Date Last Indicated Resolved Time CoV-Risk 12/14/2020 12/20/2020 12/30/2020 1:22 AM EDT documented as of this encounter Care Teams Childhood Development Teacher Relationship Specialty Start Date End Date Man Cochran NP [address] [place] [address] [email or web address] PCP - General Family Medicine 07/12/20 02/13/21 Angie Briggs MD [address] [place] [address] [email or web address] PCP - General Family Medicine 02/14/21 03/26/23 Angie Briggs MD [address] [place] [address] [email or web address] PCP - General Family Medicine 03/27/23 True Liz MD [address] [address] [email or web address] Intensive Care 07/17/23 Desilets, Winston Vincent MD [address] [place] [address] [place] [address] Gastroenterology 07/17/23 documented as of this encounter Additional Source Comments The information contained in this document represents components of the legal health record. It is not the complete legal health record.[facility]
--- OUTSIDE RECORDS SUMMARY | 2025-02-26 16:29 | XMS_ITS | Encounter Summary ---
Author Organization Located Within [facility] Address [address] [place] [address] Phone Care Team Providers Care Early Childhood Teacher Name Role Phone Angie Briggs MD Primary Care Provider [phone] Angie Briggs MD Primary Care Provider [phone] True Liz MD Unavailable [phone] DesiletsWinston MD Unavailable [phone] Encounter Details Date Type Department Care Team (Late st Contact Info) Description 01/03/2022 Procedure Pass [address] [address] Social History Tobacco Use Types Packs/Day Years Used Date Smoking Tobacco: Former Cigarettes Q uit: 1981 Smokeless Tobacco: Never Alcohol Use Standard Drinks/Week Comments Not Currently 0 (1 standard drink = 0.6 oz pur e alcohol) Comments No Sex and Gender Information Value [...] [facility] Scan - [address] [address] 03/10/2025 Procedure Pass [facility] [address] [facility], 4th [place] [address] 03/25/2025 6:00 PM EST Appointment [facility], Bone Density - [address] [address] Angie Briggs MD 70 [place] [address] 05/01/2025 10:30 AM EST Appointment [facility], Ct Scan - [address] [address] True Liz MD [address] [place] [address] 05/04/2025 9:30 AM EST Office Visit [facility] [address] [place] [address] True Liz MD [address] [place] [address] documented as of this encounter Visit Diagnoses Not on filedocumented in this encounter Care Teams Early Childhood Teacher Relationship Specialty Start Date End Date Angie Briggs MD PCP - General Family Medicine 02/14/21 03/26/23 Angie Briggs MD [address] [place] [address] PCP - General Family Medicine 03/27/23 True Liz MD [address] [place] [address] Intensive Care 07/17/23 Winston Laura MD [facility] [place] [address] Gastroenterology 07/17/23 documented as of this encounter Additional Source Comments The information contained in this document represents components of the legal health record. It is not the complete legal health record.[facility]
--- OUTSIDE RECORDS SUMMARY | 2025-02-26 16:30 | XMS_ITS | Encounter Summary ---
Author Organization [facility] Address [address] [place] [address] Phone Care Team Providers Care Hospital Mortician Name Role Phone Angie Briggs MD Primary Care Provider [phone] True Liz MD Unavailable [phone] Desilets, Winston Vincent MD Unavailable [phone] Encounter Details Date Type Department Care Team (Late st Contact Info) Description 01/04/2024 Transcribe Orders Virtual Department 30 [place] [address] Angie Briggs MD 70 [place] [address] [email or web address] Breast screening (Primary Dx) Social History Tobacco Use Types Packs/Day Years Used Date Smoking Tobacco: Former Cigarettes Q uit: 1981 Smokeless Tobacco: Never Alcohol Use Standard Drinks/Week Comments Yes 2 [...] st Contact Info) Description 12/25/2024 Procedure Pass [facility], Ct Scan [address] [address] 03/10/2025 Procedure Pass [facility] 4 ENDO DEPT 55 [facility], 4th [place] [address] 03/25/2025 6:00 PM EST Appointment [facility], Bone Density - [address] [address] Angie Briggs MD [address] [place] [address] 05/01/2025 10:30 AM EST Appointment [facility], Ct Scan - [address] [address] True Liz MD [address] [place] [address] 2[address] [place] [address] 05/04/2025 9:30 AM EST Office Visit [facility] Critical [facility] Medicine 10 [place] [address] True Liz MD [address] [address] [email or web address] documented as of this encounter Results * BI MAMMOGRAM SCREENING WITH TOMOSYNTHESIS WITH [...] be notified of the results and recommendations. Angie Briggs MD IMG MG EXAMS Final Resu lt documented in this encounter Visit Diagnoses Diagnosis Breast screening- Primary Breast screening, unspecified Breast screening Breast screening, unspecified documented in this encounter Care Teams Hospital Mortician Relationship Specialty Start Date End Date Angie Briggs MD 70 [place] [address] [email or web address] PCP - General Family Medicine 03/27/23 True Liz MD [address] [address] [email or web address] Intensive Care 07/17/23 DesiletsWinston MD [address] [place] [address] [place] [address] Gastroenterology 07/17/23 documented as of this encounter Additional Source Comments The information contained in this document represents components of the legal health record. It is not the complete legal health record.[facility]
--- OUTSIDE RECORDS SUMMARY | 2025-02-26 16:30 | XMS_ITS | Encounter Summary ---
Author Organization [facility] Address [address] [place] [address] Phone Care Team Providers Care Buckle Frame Shaper Name Role Phone Man Cochran NP Primary Care Provider [phone] Angie Briggs MD Primary Care Provider [phone] Angie Briggs MD Primary Care Provider [phone] True Liz MD Unavailable Desilets, Winston Vincent MD Unavailable [phone] Encounter Details Date Type Department Care Team (Latest Contact Info) Description 07/12/2020 Transcribe Orders Virtual Department 30 [place] [address] Violeta Hatfield MD [address] [place] [address] Exposure to SARS-associated coronavirus (Primary Dx) Social History Tobacco Use Types [...] st Contact Info) Description 12/25/2024 Procedure Pass [facility], Ct Scan - [address] [address] 03/10/2025 Procedure Pass [facility] 4 ENDO DEPT 55 [facility], 4th [place] [address] 03/25/2025 6:00 PM EST Appointment [facility], Bone Density - [address] [address] Angie Briggs MD [address] [place] [address] [email or web address] 05/01/2025 10:30 AM EST Appointment [facility], Ct Scan - [address] [address] True Liz MD [address] [place] [address] [email or web address] 05/04/2025 9:30 AM EST Office Visit [facility] 10 [place] [address] True Liz MD [address] [place] [address] [email or web address] documented as of this encounter Results * COVID-19 PCR Order (07/13/2020 7:59 AM EDT) COVID Testing Status Specimen received in analyzing lab. Results should be available within 24 to 48 hrs. [facility] Symptomatic? NO [facility] 07/13/2020 7:59 AM EDT 07/13/2020 11:37 AM EDT us Violeta Hatfield MD BODY FLUIDS AND STOOLS ORDERABLES Final Result [address] [address] [facility] [address] [place] [address] documented in this encounter Visit Diagnoses Diagnosis Exposure to SARS-associated coronavirus- Primary documented in this encounter Additional Health Concerns Infection Onset Date Last Indicated Resolved Time CoV-Exposed Comment:Recent close contact documented in the COVID-19 PCR/PRO order 07/12/2020 07/12/2020 07/27/2020 1:23 AM E DT CoV-Risk 12/14/2020 12/20/2020 12/30/2020 1:22 AM EDT documented as of this encounter Care Teams Buckle Frame Shaper Relationship Specialty Start Date End Date Man Cochran NP [address] [place] [address] [email or web address] PCP - General Family Medicine 07/12/20 02/13/21 Angie Briggs MD 73 [place] [address] [email or web address] PCP - General Family Medicine 02/14/21 03/26/23 Angie Briggs MD 70 [place] [address] PCP - General Family Medicine 03/27/23 True Liz MD [address] [address] Intensive Care 07/17/23 DesiletsWinston MD [address] [facility] [place] [address] Gastroenterology 07/17/23 documented as of this encounter Additional Source Comments The information contained in this document represents components of the legal health record. It is not the complete legal health record.[facility]
--- OUTSIDE RECORDS SUMMARY | 2025-02-26 16:30 | XMS_ITS | Encounter Summary ---
Author Organization [facility] Address [address] [place] [address] Phone Care Team Providers Care Berry Picker Name Role Phone Angie Briggs MD Primary Care Provider [phone] Man Cochran NP Primary Care Provider [phone] Angie Briggs MD Primary Care Provider [phone] Angie Briggs MD Primary Care Provider [phone] True Liz MD Unavailable [phone] DesileWinston pinzon MD Unavailable [phone] Reason for Referral * MRI/CAT Scan - Closed Specialty Diagnoses / Procedures Referred By Jesus donald Referred To Contact Radiology Diagnoses Posterior auricular lymphadenopathy Procedures CT Neck CT Angio Neck Shu Epstein CNP Phone: tel: fax: [email or web address] Referral ID Status Reason Start Date Expiration Date Visits Re quested Visits Authorized [id number] Closed 02/05/2019 02/05/2020 1 1 Encounter Details Date Type Department Care Team (Latest Contact Info) Description 02/05/2019 Transcribe Orders [facility] Department 30 [place] [address] Shu Epstein CNP [address] [place] [address] [email or web address] Posterior auricular lymphadenopathy (Primary Dx); Neck pain Social History Tobacco Use Types Packs/Day Years [...] st Contact Info) Description 12/25/2024 Procedure Pass [facility] Ct Scan [address] [address] 03/10/2025 Procedure Pass [place] [address] ENDO DEPT 55 [facility], 4th [place] [address] 03/25/2025 6:00 PM EST Appointment [facility], Bone Density [address] [address] Angie Briggs MD [address] [place] [address] 05/01/2025 10:30 AM EST Appointment [facility] Ct Scan [address] [address] True Liz MD [address] [place] [address] 05/04/2025 9:30 AM EST Office Visit [facility] [address] [place] [address] True Liz MD [address] [place] [address] documented as of this encounter Results * CT NECK SOFT TISSUE WITH CONTRAST (02/07/2019 10:08 AM EDT) Anatomical Region Laterality Modality Neck Computed Tomogra phy 02/07/2019 10:1 3 AM EDT Addenda Addendum by Jewel Hernandez MD on 02/07/2019 10:36 AM EDT COMPARISON: None. TECHNIQUE: CT neck with IV contrast obtained from skull base to thoracic inlet. Multiplanar reformats obtained. Automated exposure control utilized. CT NECK FINDINGS: Brain: Imaged brain is normal. Orbits: Imaged orbits are normal. Paranasal Sinuses/Mastoids: Normal. Salivary Glands/Thyroid Gland: Normal. Musculoskeletal: Mild retrolisthesis of C5 and C6 with moderate disc space narrowing, mild anterior wedging and endplate osteophytes. Multilevel cervical facet arthropathy which is of moderate degree at C2-3 and C3-4 on the right. Mild T4 superior endplate compression deformity of indeterminate age. Mild bilateral neural foraminal stenosis at C2-3, moderate left C3-4 neural foraminal stenosis, mild right C4-5 neural foraminal stenosis, moderate right C5-6 neural foraminal stenosis and mild left C6-7 neural foraminal stenosis. No bony canal stenosis. No significant disc herniation. Multilevel neural foraminal stenosis. No destructive bone lesions are cervical ribs. Vasculature: Mild bilateral cavernous carotid artery and right carotid bifurcation calcified plaque and moderate left carotid bifurcation calcified plaque. No acute findings. Lung Apices/Airway: Airway is patent. No masses. Minimal biapical paraseptal emphysema and biapical pleural-parenchymal scarring. Soft Tissues: No prevertebral soft tissue swelling. Moderately dilated air-filled esophagus in the lower cervical and upper thoracic region. No mass or esophageal wall thickening. No enlarged lymph nodes. No soft tissue swelling. IMPRESSION: 1. No cervical lymphadenopathy or soft tissue mass. 2. Air-filled dilated esophagus. This may be due to a distal esophageal stricture or achalasia. 3. Moderate cervical spondylosis with multilevel neural foraminal stenosis and moderate C5-6 and C6-7 degenerative disc disease. No significant disc herniation or canal stenosis 4. Mild T4 superior endplate compression fracture of indeterminate age. TOTAL CTDIvol: 9.3 mGy POS - [id number] Impressions 02/07/2019 10:23 AM EDT 1. No cervical lymphadenopathy or soft tissue mass. 2. Air-filled dilated esophagus. This may be due to a distal esophageal stricture or achalasia. TOTAL CTDIvol: 9.3 mGy POS - [id number] Narrative 02/07/2019 10:23 AM EDT COMPARISON: None. TECHNIQUE: CT neck with IV contrast obtained from skull base to thoracic inlet. Multiplanar reformats obtained. Automated exposure control utilized. CT NECK FINDINGS: Brain: Imaged brain is normal. Orbits: Imaged orbits are normal. Paranasal Sinuses/Mastoids: Normal. Salivary Glands/Thyroid Gland: Normal. Vasculature: Mild bilateral cavernous carotid artery and right carotid bifurcation calcified plaque and moderate left carotid bifurcation calcified plaque. No acute findings. Lung Apices/Airway: Airway is patent. No masses. Minimal biapical paraseptal emphysema and biapical pleural-parenchymal scarring. Soft Tissues: No prevertebral soft tissue swelling. Moderately dilated air-filled esophagus in the lower cervical and upper thoracic region. No mass or esophageal wall thickening. No enlarged lymph nodes. No soft tissue swelling. Procedure Note Jewel Hernandez MD - 02/07/2019 COMPARISON: None. TECHNIQUE: CT neck with IV contrast obtained from skull base to thoracicinlet. Multiplanar reformats obtained. Automated exposure controlutilized. CT NECK FINDINGS: Brain: Imaged brain is normal. Orbits: Imaged orbits are normal. Paranasal Sinuses/Mastoids: Normal. Salivary Glands/Thyroid Gland: Normal. Vasculature: Mild bilateral cavernous carotid artery and right carotidbifurcation calcified plaque and moderate left carotid bifurcationcalcified plaque. No acute findings. Lung Apices/Airway: Airway is patent. No masses. Minimal biapicalparaseptal emphysema and biapical pleural-parenchymal scarring. Soft Tissues: No prevertebral soft tissue swelling. Moderately dilatedair-filled esophagus in the lower cervical and upper thoracic region. [place] or esophageal wall thickening. No enlarged lymph nodes. No softtissue swelling. IMPRESSION: 1. No cervical lymphadenopathy or soft tissue mass. 2. Air-filled dilated esophagus. This may be due to a distal esophagealstricture or achalasia. TOTAL CTDIvol: 9.3 mGy POS - [id number] us Shu Epstein MARKET MANAGER IMG CT XSPECIALTY ORDERA BLES Edited Result - Final documented in this encounter Visit Diagnoses Diagnosis Posterior auricular lymphadenopathy- Primary Enlargement of lymph nodes Neck pain Cervicalgia Posterior auricular lymphadenopathy Enlargement of lymph nodes documented in this encounter Additional Health Concerns Infection Onset Date Last Indicated Resolved Time CoV-Exposed Comment:Recent close contact documented in the COVID-19 PCR/PRO order 07/12/2020 07/12/2020 07/27/2020 1:23 AM E DT CoV-Risk 12/14/2020 12/20/2020 12/30/2020 1:22 AM EDT documented as of this encounter Care Teams Berry Picker Relationship Specialty Start Date End Date Angie Briggs MD [email or web address] PCP - General Family Medicine 01/22/19 07/11/20 Man Cochran NP [address] [place] [address] [email or web address] PCP - General Family Medicine 07/12/20 02/13/21 Angie Briggs MD [email or web address] PCP - General Family Medicine 02/14/21 03/26/23 Angie Briggs MD [address] [place] [address] PCP - General Family Medicine 03/27/23 True Liz MD [address] [place] [address] [email or web address] Intensive Care 07/17/23 Winston Laura MD [address] [place] [address] [place] [address] Gastroenterology 07/17/23 documented as of this encounter Additional Source Comments The information contained in this document represents components of the legal health record. It is not the complete legal health record.[facility]
--- OUTSIDE RECORDS SUMMARY | 2025-02-26 16:30 | XMS_ITS | Data Portability ---
Author Organization [place] - [facility], Allergy Address [address] [facility] [address] [place] [address] Care Team Providers Care Slab Conditioner Supervisor Name Role Phone NACHO ROACH Primary Care Provider Assessment Encounter Date Assessment Date Assessment LastModified by Organization Details LastModified Time 09/11/2024 09/11/2024 74-year-old female with a history of achalasia presents today for evaluation after concern for pharyngeal pouch on her most recent EGD. On flexible laryngoscopy today, there is prominent base of tongue lingual tonsil tissue, which does leave a larger potential space in the vallecula. I do not see any pooled secretions. True cords are symmetric and mobile. I did review recent imaging studies including her CT neck in 2021 with no abnormality noted in the hypopharynx. Her recent barium swallows have not shown well the pharynx. I counseled her I do not see any findings on exam that require further intervention from the pharynx perspective. She should continue dilations as needed for her achalasia. Could consider modified barium in addition to barium swallow when next performed. [email or web address] Not available 09/17/2024 08:34:06 Plan of Treatment Reminders Order Date Submit Date Provider Last Modified By Organization Details Last Modified Time Details Appointments None record ed. Lab None record ed. Referral None record ed. Procedures None record ed. Surgeries None record ed. Imaging None record ed. Medication Orders None record ed. Patient TargetsNo targets recorded. Patient InstructionsNo instructions recorded. Reason for Referral None Reported. Results Created Date Observation Date Name Description Value Unit Range Abnormal Flag Note LastModifiedBy Organization Detail LastModifiedTime 09/13/19 25 03/04/2022 CT, neck, soft tissu e, w/ contr ast No observ ation record ed. [email or web address] Not Available 2024 13:41:20 10/09/19 25 07/01/2024 [place], modif ied kenia luna ow study No observ ation record ed. [email or web address] Not Available 2024 11:16:11 Result Notes None recorded. Problems Name Problem SNOMED Code Status Onset Date Resolution Date Notes Provider Name and Address Organization Details Recorded Time Oropharyngeal dysphagia 54120872 Active 2024 ALYSHA HOPPER MD 100 [facility],[place] [address], [place], [address], [facility] 08:30:04 Achalasia of esophagus 19528614 Active 2024 ALYSHA HOPPER MD 100 [facility] 100, [facility] [place], [address], [facility] 08:30:10 Dysphagia 98370325 Active 2024 ALYSHA HOPPER MD [address] [address], [place], [address], [facility] 08:30:35 Problem Notes None recorded. Procedures Surgical History Date Name Laterality Status Provider Name and Address Organization Details Recorded Time 09/12/19 Fiberoptic Laryngoscopy (Comprehensive) completed ALYSHA HOPPER MD [address] [address], [place], [address], [facility] 09/17/2024 08:29:51 Imaging Results None recorded. Procedure Notes None recorded. Medical Equipment None Reported. Allergies Allergen ID Allergen Name Allergen Category Reaction Reaction Severity Criticality Documentation Date Start Date Code Code System Note Provider Name and Address Organization Details Recorded Time 595308 Substance with sulfonami de structure and antibacte rial mechanism of action (substanc e) medicatio n Not available Not available Not available 09/11/2024 03358 8003 SNOMED Laura jimenez MA [facility] 15:36:38 040497 morphine medicatio n Not available Not available Not available 09/11/2024 7052 RxNorm Laura jimenez MA [facility] 05/15/202 5 15:36:49 Medications Name Sig Start Date Stop Date Status Note LastModified by Organization Details LastModified Time furosemide 40 mg tablet TAKE 1 TABLET BY MOUTH DAILY active Not Available Not Available No t Available oxybutynin chloride ER 15 mg tablet,exte nded release 24 hr TAKE 1 TABLET BY MOUTH EVERY DAY active Not Available Not Available No t Available pravastatin 40 mg tablet TAKE 1 TABLET BY MOUTH EVERY EVENING active Not Available Not Available No t Available Lidocaine Viscous 2 % mucosal solution RINSE AND GARGLE 10 ML BY MOUTH EVERY 6 HOURS NEEDED FOR SORE THROAT OR PAIN OR MOUTH SORE PAIN active Not Available Not Available No t Available hydrocodone 5 mg-acetamin ophen 325 mg tablet TAKE 1 TABLET BY MOUTH THREE TIMES DAILY NEEDED FOR PAIN active Not Available Not Available No t Available levothyroxi ne 25 mcg tablet TAKE 1 TABLET BY MOUTH DAILY active Not Available Not Available No t Available benzonatate 100 mg capsule TAKE 1 CAPSULE BY MOUTH THREE TIMES DAILY FOR 10 DAYS NEEDED 09/11 completed Not Available Not Available Not Available cephalexin 500 mg capsule TAKE 1 CAPSULE BY MOUTH EVERY 6 HOURS FOR 3 DAYS FOR LEG CELLULITI S 09/11 completed Not Available Not Available Not Available metoprolol succinate ER 25 mg tablet,exte nded release 24 hr TAKE 1 TABLET BY MOUTH DAILY active Not Available Not Available No t Available ibuprofen 600 mg tablet TAKE 1 TABLET BY MOUTH THREE TIMES DAILY FOR 7 DAYS active Not Available Not Available No t Available doxycycline hyclate 100 mg tablet TAKE 1 TABLET BY MOUTH TWICE DAILY FOR 7 DAYS 09/11 completed Not Available Not Available Not Available amoxicillin 875 mg-potassiu m clavulanate 125 mg tablet TAKE 1 TABLET BY MOUTH EVERY 12 HOURS FOR 7 DAYS 09/11 completed Not Available Not Available Not Available aripiprazol e 10 mg tablet TAKE 1 TABLET BY MOUTH TWICE DAILY 09/11 completed Not Available Not Available Not Available duloxetine 60 mg capsule,del ayed release TAKE 1 CAPSULE BY MOUTH EVERY DAY IN THE MORNING active Not Available Not Available No t Available pregabalin 200 mg capsule TAKE 1 CAPSULE BY MOUTH TWICE DAILY active Not Available Not Available No t Available aripiprazol e 10 mg disintegrat ing tablet Place 1 tablet every day by transling ual route. active Not Available Not Available No t Available Xarelto 20 mg tablet TAKE 1 TABLET BY MOUTH DAILY WITH EVENING MEAL active Not Available Not Available No t Available Eliquis 5 mg tablet TAKE 1 TABLET BY MOUTH TWICE DAILY active Not Available Not Available No t Available fluticasone 113 mcg-salmete rol 14 mcg/actuati on breath activated powdr INHALE 1 PUFF BY MOUTH TWICE DAILY active Not Available Not Available No t Available Vitals Date Recorded Body height Body mass index (BMI) Body weight Provider Name and Address Organization Details Last Updated DateTime 09/11/2024 154.94 cm 29.9 kg/m2 23353.59 g Laura Mark [place] - [facility] 09/11/2024 15:36:28 Social History None recorded. Functional Status None recorded. Mental Status None recorded. Family History Nothing Reported. Medical History Condition Response Heart Problems Y Arthritis Y Anxiety Y Depression Y Gynecological HistoryNo gynecological history recorded. Obstetrics History GPAL:G 0 P 0 0 0 0 Past Encounters Encounter ID Performer Location Encounter Start Date Encounter Closed Date Diagnosis/Indication Diagnosis SNOMED-CT Code Diagnosis ICD10 Code Diagnosis IMO Codes Diagnosis Note [id number] ALYSHA HOPPER MD [facility] on [address] [place] [address] 09/11/2024 14:56:36 09/12/2024 15:51:39 Achalasia of esophagus 44134463 K22.0 43505 Dysphagia 23632071 R13.1 4 493930 Health Concerns Section Related Observation LastModified by Organization Detai ls LastModified Time None Recorded Concern Status LastModified by Organization Details LastModified Time None Recorded Advance Directives Directive None Recorded Payers Insurance Date Sequence Insurance Name Policy Number Policy Lei Covered Member ID Lei Member ID Guarantor Name 02/12/2025 1 [place] [employer] Max Rock Jocelyn [id number] Max Rock [facility] 02/12/2025 2 [facility] Max Rock Jocelyn [id number] Max Rock [facility] 11/20/2024 1 [facility] (MEDICARE REPLACEMENT/ ADVANTAGE - PPO) Max Rock Jocelyn [id number] Max Rock [facility] Notes Date Note Type Note Provider Name and Address Organization Details Recorded Time 09/11/2024 text/html 74-year-old female presents today for evaluation of dysphagia. She has a history of achalasia and has had multiple dilations. On her most recent EGD there was a concern for a pouch at the base of tongue for which she is here today. has not been able to eat solids CT neck 2021No radiopaque foreign body in the region of the oropharynx, hypopharynx, or visualized portion of the esophagus.Esophagu s is markedly dilated with debris along its mid to distal portion which is due to patient's known esophageal achalasia. Recommend GI consult for possible dilatation of distal esophagus. BaS 07/01/2024 showed Markedly patulous esophagus with severe esophageal dysmotility With abrupt hold-up of barium near the GE junction keeping with a history of known achalasia previous history of HERIBERTO, previously on BiPAP ALYSHA HOPPER MD [address] [place] [address], [place], [address], [facility] - [facility] 09/17/2024 08:34:55 OBGyn Episode No OBEpisode recorded.
--- OUTSIDE RECORDS SUMMARY | 2025-02-26 16:30 | XMS_ITS | Encounter Summary ---
Author Organization [facility] Address [address] [place] [address] Phone Care Team Providers Care Senior Ux Designer Name Role Phone Angie Briggs MD Primary Care Provider [phone] Man Cochran NP Primary Care Provider [phone] Angie Briggs MD Primary Care Provider [phone] Angie Briggs MD Primary Care Provider [phone] True Liz MD Unavailable [phone] DesiletsWinston MD Unavailable [phone] Encounter Details Date Type Department Care Team (Late Contact Info) Description 11/07/2017 Ancillary Orders Virtual Department [address] [place] [address] Cha Ingram MD [address] [place] [address] [email or web address] Breast screening Social History Tobacco Use Types Packs/Day Years Used Date Smoking Tobacco: Never Assessed Comments Unknown Sex and Gender Information Value Date Recorded Sex Assigned at Female 12/20/2020 12:45 PM EDT Legal Sex Female 7:43 PM EST Gender Identity Female 12/20/2020 12:45 PM EDT Sexual Orientation Straight 02/14/2021 9: 53 AM EDT documented as of this encounter Plan of Treatment Upcoming Encounters Date Type Department Care Team (Late st Contact Info) Description 12/25/2024 Procedure Pass [facility], Ct Scan - [address] [address] 03/10/2025 Procedure Pass [facility] 4 ENDO DEPT [address] [facility], 4th [place] [address] 03/25/2025 6:00 PM EST Appointment [facility], Bone Density - [address] [address] Angie Briggs MD [address] [place] [address] 05/01/2025 10:30 AM EST Appointment [facility], Ct Scan - [address] [address] True Liz MD [address] [address] 05/04/2025 9:30 AM EST Office Visit CD Pulmonary, Allergy and Critical Care Medicine 10 [place] [address] True Liz MD [address] [place] [address] documented as of this encounter Results * BI MAMMOGRAM SCREENING WITH TOMOSYNTHESIS WITH CAD (BILATERAL) (01/16/2018 12:46 PM EDT) Anatomical Region Laterality Modality Breast Left, Breast Right, Breast Bilateral Bila teral Mammography 01/16/2018 7:25 PM EDT Impressions 01/16/2018 7:29 PM EDT BILATERAL BREASTS: Benign, no evidence of malignancy. Normal interval follow-up is recommended in 12 months. BI-RADS CATEGORY: 2 - Benign finding. DENSITY: There are scattered fibroglandular densities. POS - [id number] Narrative 01/16/2018 7:29 PM EDT STUDY: Bilateral screening mammography with tomosynthesis and CAD TECHNIQUE: Bilateral full-field digital screening mammography is obtained and read in conjunction with computer-aided detection. Tomosynthesis as well as 2-D C view imaging were obtained. COMPARISON: Comparison made to multiple prior, most recent August 08, 2016, and most remote June 09, 2008. BREAST COMPOSITION: There are scattered areas of fibroglandular density RIGHT BREAST: Previous excisional biopsy. No significant masses, calcifications or other abnormalities are seen. LEFT BREAST: No significant masses, calcifications or other abnormalities are seen. Procedure Note Norma Holly MD - 01/16/2018 STUDY: Bilateral screening mammography with tomosynthesis and CAD TECHNIQUE: Bilateral full-field digital screening mammography is obtainedand read in conjunction with computer-aided detection. Tomosynthesis aswell as 2-D C view imaging were obtained. COMPARISON: Comparison made to multiple prior, most recent August 08, 2016,and most remote June 09, 2008. BREAST COMPOSITION: There are scattered areas of fibroglandulardensity RIGHT BREAST: Previous excisional biopsy. No significant masses,calcifications or other abnormalities are seen. LEFT BREAST: No significant masses, calcifications or otherabnormalities are seen. IMPRESSION: BILATERAL BREASTS: Benign, no evidence of malignancy. Normal intervalfollow-up is recommended in 12 months. BI-RADS CATEGORY: 2 - Benign finding. DENSITY: There are scattered fibroglandular densities. POS - [id number] us Cha Ingram MD IMG MG EXAMS Final Res ult documented in this encounter Visit Diagnoses Diagnosis Breast screening Breast screening, unspecified Breast screening Breast screening, unspecified documented in this encounter Additional Health Concerns Infection Onset Date Last Indicated Resolved Time CoV-Exposed Comment:Recent close contact documented in the COVID-19 PCR/PRO order 07/12/2020 07/12/2020 07/27/2020 1:23 AM E DT CoV-Risk 12/14/2020 12/20/2020 12/30/2020 1:22 AM EDT documented as of this encounter Care Teams Senior Ux Designer Relationship Specialty Start Date End Date Angie Briggs MD [email or web address] PCP - General Family Medicine 01/22/19 07/11/20 Man Cochran NP [address] [place] [address] [email or web address] PCP - General Family Medicine 07/12/20 02/13/21 Angie Briggs MD [email or web address] PCP - General Family Medicine 02/14/21 03/26/23 Angie Briggs MD [address] [place] [address] [email or web address] PCP - General Family Medicine 03/27/23 True Liz MD [address] [address] [email or web address] Intensive Care 07/17/23 Winston Laura MD [address] [place] [address] [place] [address] Gastroenterology 07/17/23 documented as of this encounter Additional Source Comments The information contained in this document represents components of the legal health record. It is not the complete legal health record.[facility]
--- OUTSIDE RECORDS SUMMARY | 2025-02-26 16:30 | XMS_ITS | Encounter Summary ---
Author Organization [facility] Address [address] [place] [address] Phone Care Team Providers Care Adjunct Psychology Faculty Member Name Role Phone Man Cochran NP Primary Care Provider [phone] Angie Briggs MD Primary Care Provider [phone] Angie Briggs MD Primary Care Provider [phone] True Liz MD Unavailable [phone] DesiletsWinston MD Unavailable [phone] Encounter Details Date Type Department Care Team (Late st Contact Info) Description 11/24/2020 Ancillary Orders Virtual Department [address] [place] [address] Man Cochran NP [address] [place] [address] [email or web address] Breast screening Social History Tobacco Use Types [...] st Contact Info) Description 12/25/2024 Procedure Pass [facility], Ct Scan - [facility] [address] [address] 03/10/2025 Procedure Pass [facility] 4 ENDO DEPT [address] [facility], 4th [place] [address] 03/25/2025 6:00 PM EST Appointment [facility], Bone Density - [address] [address] Angie Briggs MD [address] [place] [address] 05/01/2025 10:30 AM EST Appointment [facility], Ct Scan - [address] [address] True Liz MD [address] [place] [address] [email or web address] 05/04/2025 9:30 AM EST Office Visit CD Pulmonary, Allergy and Critical Care Medicine [address] [place] [address] True Liz MD [address] [place] [address] [email or web address] documented as of this encounter Results * BI MAMMOGRAM SCREENING WITH TOMOSYNTHESIS WITH CAD (BILATERAL) (11/29/2020 1:50 PM EDT) Anatomical Region Laterality Modality Breast Left, Breast Right, Breast Bilateral Bila teral Mammography 11/29/2020 2:18 PM EDT Impressions 11/29/2020 2:19 PM EDT No mammographic change indicative of malignancy. Routine screening is recommended. BI-RADS CATEGORY: 1 - Negative. DENSITY: There are scattered fibroglandular densities. Narrative 11/29/2020 2:19 PM EDT Bilateral full-field digital screening mammography is obtained and read in conjunction with computer-aided detection. Tomosynthesis as well as 2-D C view imaging of both breasts in two planes also obtained. Comparison made to multiple prior, most recent January 22, 2019, and most remote March 08, 2010. No dominant mass, architectural distortion, worrisome asymmetry, or suspicious calcification is identified. No skin or nipple finding of concern is appreciated. Procedure Note Shayne Mascorro MD - 11/29/2020 Bilateral full-field digital screening mammography is obtained and read inconjunction with computer-aided detection. Tomosynthesis as well as 2-D Cview imaging of both breasts in two planes also obtained. Comparison madeto multiple prior, most recent January 22, 2019, and most remoteMarch 08, 2010. No dominant mass, architectural distortion, worrisome asymmetry, orsuspicious calcification is identified. No skin or nipple finding ofconcern is appreciated. IMPRESSION: No mammographic change indicative of malignancy. Routine screening isrecommended. BI-RADS CATEGORY: 1 - Negative. DENSITY: There are scattered fibroglandular densities. Man Cochran NP IMG MG EXAMS Final Result documented in this encounter Visit Diagnoses Diagnosis Breast screening Breast screening, unspecified Breast screening Breast screening, unspecified documented in this encounter Additional Health Concerns Infection Onset Date Last Indicated Resolved Time CoV-Risk 12/14/2020 12/20/2020 12/30/2020 1:2 2 AM EDT documented as of this encounter Care Teams Adjunct Psychology Faculty Member Relationship Specialty Start Date End Date Man Cochran NP [address] [place] [address] [email or web address] PCP - General Family Medicine 07/12/20 02/13/21 Angie Briggs MD [address] [place] [address] PCP - General Family Medicine 02/14/21 03/26/23 Angie Briggs MD [address] [place] [address] [email or web address] PCP - General Family Medicine 03/27/23 True Liz MD [address] [address] [email or web address] Intensive Care 07/17/23 Winston Laura MD [address] [facility] [place] [address] Gastroenterology 07/17/23 documented as of this encounter Additional Source Comments The information contained in this document represents components of the legal health record. It is not the complete legal health record.[facility]
--- OUTSIDE RECORDS SUMMARY | 2025-02-26 16:30 | XMS_ITS | Encounter Summary ---
Author Organization [facility] Address [address] [place] [address] Phone Care Team Providers Care Milk Runner Name Role Phone Angie Briggs MD Primary Care Provider [phone] Man Cochran NP Primary Care Provider [phone] Angie Briggs MD Primary Care Provider [phone] Angie Briggs MD Primary Care Provider [phone] True Liz MD Unavailable [phone] DesiletsHarseh MD Unavailable [phone] Encounter Details Date Type Department Care Team (Late st Contact Info) Description 01/22/2019 Transcribe Orders Virtual Department 30 [place] [address] Shu Epstein, TRAILER MECHANIC [address] [place] [address] [email or web address] Neck pain (Primary Dx) Social History Tobacco Use Types [...] st Contact Info) Description 12/25/2024 Procedure Pass [facility], Ct Scan - [address] [address] 03/10/2025 Procedure Pass [facility] 4 ENDO DEPT [address] [facility], 4th [place] [address] 03/25/2025 6:00 PM EST Appointment [facility], Bone Density - [address] [address] Angie Briggs MD 70 [place] [address] 05/01/2025 10:30 AM EST Appointment [facility], Ct Scan [address] [address] True Lzi MD [address] [address] 05/04/2025 9:30 AM EST Office Visit [facility], All[facility] Critical [facility] Medicine 10 [place] [address] True Liz MD [address] [place] [address] documented as of this encounter Results * XR CERVICAL SPINE 4-5 VIEWS (01/22/2019 7:19 PM EDT) Anatomical Region Laterality Modality C-spine Radiographic Nicol ging 01/23/2019 7:52 AM EDT Impressions 01/23/2019 7:54 AM EDT Limited study due to patient body habitus revealing no acute traumatic bony abnormality. Lower cervical degenerative disc disease. CT or MRI could be considered for further evaluation, depending upon the clinical scenario. POS - [id number] Narrative 01/23/2019 7:54 AM EDT COMPARISON: None FINDINGS: Frontal, lateral, oblique, and AP open mouth views were obtained, moderately limited due to kyphoscoliosis. Degenerative disc changes are present at the C5-6 and C6-7 levels. No gross fracture or subluxation detected. Additional degenerative change present the lateral dens articulation. Severely limited evaluation of the left mid and upper cervical foramina with the lower foramina patent. Right foramina appear to be grossly patent. Visualized prevertebral soft tissues are not thickened. Procedure Note Haresh Hillman MD - 01/23/2019 COMPARISON: None FINDINGS: Frontal, lateral, oblique, and AP open mouth views were obtained,moderately limited due to kyphoscoliosis. Degenerative disc changes arepresent at the C5-6 and C6-7 levels. No gross fracture or subluxationdetected. Additional degenerative change present the lateral densarticulation. Severely limited evaluation of the left mid and uppercervical foramina with the lower foramina patent. Right foramina appearto be grossly patent. Visualized prevertebral soft tissues are notthickened. IMPRESSION: Limited study due to patient body habitus revealing no acute traumaticbony abnormality. Lower cervical degenerative disc disease. CT or MRIcould be considered for further evaluation, depending upon the clinicalscenario. POS - [id number] Shu Epstein TRAILER MECHANIC IMG XR SPINE Final Re sult documented in this encounter Visit Diagnoses Diagnosis Neck pain- Primary Cervicalgia Neck pain Cervicalgia documented in this encounter Additional Health Concerns Infection Onset Date Last Indicated Resolved Time CoV-Exposed Comment:Recent close contact documented in the COVID-19 PCR/PRO order 07/12/2020 07/12/2020 07/27/2020 1:23 AM E DT CoV-Risk 12/14/2020 12/20/2020 12/30/2020 1:22 AM EDT documented as of this encounter Care Teams Milk Runner Relationship Specialty Start Date End Date Angie Briggs MD [email or web address] PCP - General Family Medicine 01/22/19 07/11/20 Man Cochran NP [address] [place] [address] [email or web address] PCP - General Family Medicine 07/12/20 02/13/21 Angie Briggs MD [email or web address] PCP - General Family Medicine 02/14/21 03/26/23 Angie Briggs MD [address] [place] [address] [email or web address] PCP - General Family Medicine 03/27/23 True Liz MD [address] [place] [address] [email or web address] Intensive Care 07/17/23 Haresh Laura MD [address] [place] [address] [place] [address] Gastroenterology 07/17/23 documented as of this encounter Additional Source Comments The information contained in this document represents components of the legal health record. It is not the complete legal health record.[facility]
--- OUTSIDE RECORDS SUMMARY | 2025-02-26 16:30 | XMS_ITS | Encounter Summary ---
Author Organization [facility] Address [facility] [address] [place] [address] Phone Care Team Providers Care Nursery Rn Name Role Phone Angie Briggs MD Primary Care Provider [phone] Angie Briggs MD Primary Care Provider [phone] True Liz MD Unavailable Desilets, Winston Vincent MD Unavailable [phone] Encounter Details Date Type Department Care Team (Late st Contact Info) Description 11/07/2022 Procedure Pass [facility], [address] [address] Social History Tobacco Use Types Packs/Day Years Used Date Smoking Tobacco: Former Cigarettes Q uit: 1981 Smokeless Tobacco: Never Alcohol Use Standard Drinks/Week Comments Not Currently 0 (1 standard drink = 0.6 oz pur e alcohol) Education Answer Date Recorded Are you interested in more education? Not on jsesy e 08/24/2022 Are you concerned about learning? Not on file 08/24/2022 No 08/24/2022 No 08/24/2022 Digital Access Answer Date Recorded No 09/25/2022 No 09/25/2022 Reliable internet access at home? Not on file 09/25/2022 Device with a working camera? Not on file Comments No Sex and Gender Information Value Date Recorded Sex Assigned at Female 12/20/2020 12:45 PM EDT Legal Sex Female 7:43 PM EST Gender Identity Female 12/20/2020 12:45 PM EDT Sexual Orientation Straight 02/14/2021 9: 53 AM EDT documented as of this encounter Plan of Treatment Upcoming Encounters Date Type Department Care Team (Late st Contact Info) Description 12/25/2024 Procedure Pass [facility], Ct Scan - [address] [address] 03/10/2025 Procedure Pass [facility] 4 ENDO DEPT [address] [facility], 4th [place] [address] 03/25/2025 6:00 PM EST Appointment [facility], Bone Density - [address] [address] Angie Briggs MD [address] [place] [address] 05/01/2025 10:30 AM EST Appointment [facility], Ct Scan [address] [address] True Liz MD [address] [place] [address] 05/04/2025 9:30 AM EST Office Visit [facility] [address] [place] [address] True Liz MD [address] [place] [address] documented as of this encounter Visit Diagnoses Not on filedocumented in this encounter Care Teams Nursery Rn Relationship Specialty Start Date End Date Angie Briggs MD PCP - General Family Medicine 02/14/21 03/26/23 Angie Briggs MD [address] [place] [address] [email or web address] PCP - General Family Medicine 03/27/23 True Liz MD [address] [address] [email or web address] Intensive Care 07/17/23 DesiletsWinston MD [address] [place] [address] [place] [address] Gastroenterology 07/17/23 documented as of this encounter Additional Source Comments The information contained in this document represents components of the legal health record. It is not the complete legal health record.[facility]
--- OUTSIDE RECORDS SUMMARY | 2025-02-26 16:30 | XMS_ITS | Encounter Summary ---
Author Organization [facility] Address [address] [place] [address] Phone Care Team Providers Care Home Demonstrator Name Role Phone Angie Briggs MD Primary Care Provider [phone] Angie Briggs MD Primary Care Provider [phone] True Liz MD Unavailable [phone] DesiletsWinston MD Unavailable [phone] Encounter Details Date Type Department Care Team (Late st Contact Info) Description 11/07/2022 Transcribe Orders Virtual Department 30 [place] [address] Angie Briggs MD 70 [place], [place] [phone] [email or web address] Breast screening (Primary [...] st Contact Info) Description 12/25/2024 Procedure Pass [facility], Ct Scan - [address] [address] 03/10/2025 Procedure Pass [place] [address] ENDO DEPT [address] [facility], 4th [place] [address] 03/25/2025 6:00 PM EST Appointment [facility], Bone Density [address] [address] Angie Briggs MD [address] [place] [address] 05/01/2025 10:30 AM EST Appointment [facility] Ct Scan [address] [address] True Liz MD [address] [place] [address] 05/04/2025 9:30 AM EST Office Visit [facility] All[facility] 10 [place] [address] True Liz MD [address] [place] [address] documented as of this encounter Results * BI MAMMOGRAM SCREENING WITH TOMOSYNTHESIS WITH CAD (BILATERAL) (01/16/2023 1:28 PM EDT) Anatomical Region Laterality Modality Breast Left, Breast Right, Breast Bilateral Bila teral Mammography 2023 7:28 PM EDT Impressions 2023 7:30 PM EDT BILATERAL BREASTS: No evidence of malignancy. Normal interval follow-up is recommended. BI-RADS: BI-RADS CATEGORY: 2 - Benign finding. DENSITY: The breast tissue is almost entirely fat. Narrative 2023 7:30 PM EDT History: Breast cancer screening. STUDY: Bilateral screening mammography with tomosynthesis and CAD TECHNIQUE: Bilateral full-field digital screening mammography is obtained and read in conjunction with computer-aided detection. Tomosynthesis as well as 2-D C view imaging were obtained. COMPARISON: 01/10/2022 dating back to 02/17/2004. FINDINGS: Breast tissue is mostly fatty replaced. Scattered benign calcifications. No suspicious mass, concerning group of calcifications or suspicious asymmetry identified. Procedure Note Jed Santiago MD - 2023 History: Breast cancer screening. STUDY: Bilateral screening mammography with tomosynthesis and CAD TECHNIQUE: Bilateral full-field digital screening mammography is obtainedand read in conjunction with computer-aided detection. Tomosynthesis aswell as 2-D C view imaging were obtained. COMPARISON: 01/10/2022 dating back to 02/17/2004. FINDINGS: Breast tissue is mostly fatty replaced. Scattered benigncalcifications. No suspicious mass, concerning group of calcifications orsuspicious asymmetry identified. IMPRESSION: BILATERAL BREASTS: No evidence of malignancy. Normal interval follow-up isrecommended. BI-RADS: BI-RADS CATEGORY: 2 - Benign finding. DENSITY: The breast tissue is almost entirely fat. Angie Briggs MD IMG MG EXAMS Final Resu lt documented in this encounter Visit Diagnoses Diagnosis Breast screening- Primary Breast screening, unspecified Breast screening Breast screening, unspecified documented in this encounter Care Teams Home Demonstrator Relationship Specialty Start Date End Date Angie Briggs MD [email or web address] PCP - General Family Medicine 02/14/21 03/26/23 Angie Briggs MD [address] [place] [address] [email or web address] PCP - General Family Medicine 03/27/23 True Liz MD [address] [place] [address] [email or web address] Intensive Care 07/17/23 Winston Laura MD [address] [place] [address] [place] [address] Gastroenterology 07/17/23 documented as of this encounter Additional Source Comments The information contained in this document represents components of the legal health record. It is not the complete legal health record.[facility]
--- OUTSIDE RECORDS SUMMARY | 2025-02-26 16:30 | XMS_ITS | Encounter Summary ---
Author Organization [facility] Address [facility] Back[facility] [address] [place] [address] Phone Care Team Providers Care Auto Travel Counselor Name Role Phone Angie Briggs MD Primary Care Provider [phone] True Liz MD Unavailable [phone] Desilets, Winston Vincent MD Unavailable [phone] Encounter Details Date Type Department Care Team (Late st Contact Info) Description 02/25/2024 Ancillary Orders [facility], X-Ray - [facility] [place] [address] [place] [address] Winston Guthrie, INSPECTOR OPTICAL INSTRUMENT [address] [place] [id number] Chronic cough (Primary Dx) Social History Tobacco Use Types [...] st Contact Info) Description 12/25/2024 Procedure Pass [facility] Ct Scan [address] [address] 03/10/2025 Procedure Pass [facility] [address] [facility], 4th [place] [address] 03/25/2025 6:00 PM EST Appointment [facility], Bone Density [address] [address] Angie Briggs MD [address] [place] [address] 05/01/2025 10:30 AM EST Appointment [facility] Ct Scan - [address] [address] True Liz MD [address] [place] [address] 05/04/2025 9:30 AM EST Office Visit [facility] All[facility] 10 [place] [address] True Liz MD [address] [place] [address] [email or web address] documented as of this encounter Visit Diagnoses Diagnosis Chronic cough- Primary Cough documented in this encounter Care Teams Auto Travel Counselor Relationship Specialty Start Date End Date Angie Briggs MD [address] [place] [address] [email or web address] PCP - General Family Medicine 03/27/23 True Liz MD [address] [place] [address] [email or web address] Intensive Care 07/17/23 Desilets, Winston Vincent MD [address] [place] [address] [place] [address] Gastroenterology 07/17/23 documented as of this encounter Additional Source Comments The information contained in this document represents components of the legal health record. It is not the complete legal health record.[facility]
--- OUTSIDE RECORDS SUMMARY | 2025-02-26 16:30 | XMS_ITS | Encounter Summary ---
Author Organization [facility] Address [address] [place] [address] [place] [address] Phone Care Team Providers Care Dynamotor Repairer Name Role Phone Angie Briggs MD Primary Care Provider [phone] True Liz MD Unavailable [phone] Desilets, Winston Vincent MD Unavailable [phone] Encounter Details Date Type Department Care Team (Late st Contact Info) Description 07/05/2023 Procedure Pass [facility] Endoscopy Admitting Dept Virtual Department 30 [place] [address] Social History Tobacco Use Types Packs/Day Years [...] st Contact Info) Description 12/25/2024 Procedure Pass [facility] Ct Scan [address] [address] 03/10/2025 Procedure Pass [place] [address] ENDO DEPT 55 [facility], 4th [place] [address] 03/25/2025 6:00 PM EST Appointment [facility], Bone Density [address] [address] Angie Briggs MD [address] [place] [address] 05/01/2025 10:30 AM EST Appointment [facility] Ct Scan [address] [address] True Liz MD [address] [place] [address] 05/04/2025 9:30 AM EST Office Visit [facility] [address] [place] [address] True Liz MD [address] [place] [address] documented as of this encounter Visit Diagnoses Not on filedocumented in this encounter Care Teams Dynamotor Repairer Relationship Specialty Start Date End Date Angie Briggs MD 70 [place] [address] [email or web address] PCP - General Family Medicine 03/27/23 True Liz MD [address] [address] [email or web address] Intensive Care 07/17/23 Winston Laura MD [address] [place] [address] [place] [address] Gastroenterology 07/17/23 documented as of this encounter Additional Source Comments The information contained in this document represents components of the legal health record. It is not the complete legal health record.[facility]
--- OUTSIDE RECORDS SUMMARY | 2025-02-26 16:30 | XMS_ITS | Encounter Summary ---
Author Organization [facility] Address [address] [place] [address] [place] [address] Phone Care Team Providers Care Lead Clinical Research Coordinator Name Role Phone Angie Briggs MD Primary Care Provider [phone] True Liz MD Unavailable [phone] Desilets, Winston Vincent MD Unavailable [phone] Encounter Details Date Type Department Care Team (Latest Contact Info) Description 06/24/2024 Transcribe Orders Virtual Department 30 [place] [address] Denny Pope MD [address] [address] Dysphagia, unspecified type (Primary Dx) Social History Tobacco Use Types [...] st Contact Info) Description 12/25/2024 Procedure Pass [facility] Ct Scan [address] [address] 03/10/2025 Procedure Pass [place] [address] ENDO DEPT 55 [facility], 4th [place] [address] 03/25/2025 6:00 PM EST Appointment [facility], Bone Density [address] [address] Angie Briggs MD [address] [place] [address] 05/01/2025 10:30 AM EST Appointment [facility] Ct Scan - [address] [address] True Liz MD [address] [place] [address] 05/04/2025 9:30 AM EST Office Visit [facility] Pulmonary, Allergy and Critical Care Medicine [address] [place] [address] True Liz MD [address] [place] [address] [email or web address] documented as of this encounter Results * FL BARIUM SWALLOW ESOPHAGRAM DOUBLE CONTRAST (07/01/2024 10:33 AM EST) Anatomical Region Laterality Modality Chest Radio Fluoroscop y 07/01/2024 2:41 PM EST Impressions 07/01/2024 3:02 PM EST Markedly patulous esophagus with severe esophageal dysmotility. Findings in keeping with known history of achalasia. No significant changes to prior study 03/27/2023. FLUOROSCOPY TIME: 1 minute 3 seconds NUMBER OF IMAGES: 202 The examination was performed by Moshe DODD. Dr. Lynette De Jesus was immediately available for portions of the procedure as needed. ATTESTATION: I, Lynette De Jesus as teaching physician, have reviewed the images for this case and if necessary edited the report originally created by Moshe Garcia. Narrative 07/01/2024 3:02 PM EST FL BARIUM SWALLOW ESOPHAGRAM DOUBLE CONTRAST HISTORY: Dysphagia. Achalasia. COMPARISON: Barium swallow esophagram 03/27/2023. TECHNIQUE: Double contrast barium swallow examination was performed with Sodium Carbonate and Barium. FINDINGS: Barium swallow esophagram is limited due to severe esophageal dysmotility. The esophagus is markedly patulous and tortuous. There is abrupt tapering with severe holdup of barium near the GE junction in keeping with history of known achalasia. After approximately 5 minutes, the barium was unable to enter the stomach and the exam was ended. Procedure Note Lynette De Jesus MD - 07/01/2024 FL BARIUM SWALLOW ESOPHAGRAM DOUBLE CONTRAST HISTORY: Dysphagia. Achalasia. COMPARISON: Barium swallow esophagram 03/27/2023. TECHNIQUE: Double contrast barium swallow examination was performed withSodium Carbonate and Barium. FINDINGS: Barium swallow esophagram is limited due to severe esophageal dysmotility.The esophagus is markedly patulous and tortuous. There is abrupt taperingwith severe holdup of barium near the GE junction in keeping with historyof known achalasia. After approximately 5 minutes, the barium was unableto enter the stomach and the exam was ended. IMPRESSION: Markedly patulous esophagus with severe esophageal dysmotility. Findingsin keeping with known history of achalasia. No significant changes toprior study 03/27/2023. FLUOROSCOPY TIME: 1 minute 3 seconds NUMBER OF IMAGES: 202 The examination was performed by RRAMoshe. Dr. Lynette De Jesus wasimmediately available for portions of the procedure as needed. ATTESTATION: I, Lynette De Jesus as teaching physician, have reviewed theimages for this case and if necessary edited the report originally createdby Moshe Garcia. Denny Pope MD IMG [facility] Final Result documented in this encounter Visit Diagnoses Diagnosis Dysphagia, unspecified type- Primary Dysphagia, unspecified type documented in this encounter Care Teams Lead Clinical Research Coordinator Relationship Specialty Start Date End Date Angie Briggs MD [address] [place] [address] PCP - General Family Medicine 03/27/23 True Liz MD [address] [place] [address] Intensive Care 07/17/23 DesiletsWinston MD [address] [place] [address] [place] [address] Gastroenterology 07/17/23 documented as of this encounter Additional Source Comments The information contained in this document represents components of the legal health record. It is not the complete legal health record.[facility]
--- OUTSIDE RECORDS SUMMARY | 2025-02-26 16:30 | XMS_ITS | Encounter Summary ---
Author Organization [facility] Address [address] [place] [address] Phone Care Team Providers Care Window Shade Ring Sewer Name Role Phone Angie Briggs MD Primary Care Provider [phone]- [phone] Angie Briggs MD Primary Care Provider +[phone]- [phone] True Liz MD Unavailable [phone] DesiletsWinston MD Unavailable [phone] Encounter Details Date Type Department Care Team (Late st Contact Info) Description 05/31/2021 Transcribe Orders Virtual Department 30 [place] [address] Roshni Mayer PA 1 [place] [address] Heart failure, unspecified HF chronicity, unspecified heart failure type Social History Tobacco Use Types Packs/Day Years [...] st Contact Info) Description 12/25/2024 Procedure Pass [facility], Ct Scan - [address] [address] 03/10/2025 Procedure Pass [facility] 4 ENDO DEPT [address] [facility], 4th [place] [address] 03/25/2025 6:00 PM EST Appointment [facility], Bone Density - [address] [address] Angie Briggs MD [address] [place] [address] 05/01/2025 10:30 AM EST Appointment [facility], Ct Scan - [address] [address] True Liz MD [address] [place] [address] 05/04/2025 9:30 AM EST Office Visit [facility] Pulmonary, Allergy and Critical Care Medicine [address] [place] [address] True Liz MD [address] [place] [address] documented as of this encounter Visit Diagnoses Diagnosis Heart failure, unspecified HF chronicity, unspecified heart failure type documented in this encounter Care Teams Window Shade Ring Sewer Relationship Specialty Start Date End Date Angie Briggs MD PCP - General Family Medicine 02/14/21 03/26/23 Angie Briggs MD [address] [place] [address] PCP - General Family Medicine 03/27/23 True Liz MD [address] [place] [address] [email or web address] Intensive Care 07/17/23 Winston Laura MD [address] [place] [address] [place] [address] Gastroenterology 07/17/23 documented as of this encounter Additional Source Comments The information contained in this document represents components of the legal health record. It is not the complete legal health record.[facility]
--- OUTSIDE RECORDS SUMMARY | 2025-02-26 16:30 | XMS_ITS | Encounter Summary ---
Author Organization [facility] Address [address] [place] [address] Phone Care Team Providers Care Computer Engineering Professor Name Role Phone Angie Briggs MD Primary Care Provider [phone]- [phone] Man Cochran NP Primary Care Provider [phone] Angie Briggs MD Primary Care Provider [phone]- [phone] Angie Briggs MD Primary Care Provider [phone]- [phone] True Liz MD Unavailable [phone] DesiletsWinston MD Unavailable [phone] Encounter Details Date Type Department Care Team (Late st Contact Info) Description 12/17/2018 Ancillary Orders Virtual Department 30 [place] [address] Violeta Hatfield MD [address] [place] [address] [email or web address] Breast screening Social History Tobacco Use Types [...] st Contact Info) Description 12/25/2024 Procedure Pass [facility], Ct Scan - [address] [address] 03/10/2025 Procedure Pass [place] [address] ENDO DEPT [address] [facility], 4th [place] [address] 03/25/2025 6:00 PM EST Appointment [facility], Bone Density - [address] [address] Angie Briggs MD [address] [place] [address] 05/01/2025 10:30 AM EST Appointment [facility], Ct Scan - [address] [address] True Liz MD [address] [place] [address] 05/04/2025 9:30 AM EST Office Visit [facility] Pulmonary, Allergy and Critical Care Medicine [address] [place] [address] True Liz MD [address] [place] [address] documented as of this encounter Results * BI MAMMOGRAM SCREENING WITH TOMOSYNTHESIS WITH CAD (BILATERAL) (01/22/2019 12:36 PM EDT) Anatomical Region Laterality Modality Breast Left, Breast Right, Breast Bilateral Bila teral Mammography 01/22/2019 2:22 PM EDT Impressions 01/22/2019 2:23 PM EDT Normal negative. Routine screening recommended. BI-RADS CATEGORY: 1 - Negative. DENSITY: The breast tissue is almost entirely fat. POS -[id number] Narrative 01/22/2019 2:23 PM EDT Bilateral full-field digital screening mammography is obtained and read in conjunction with computer-aided detection. Tomosynthesis as well as 2-D C view imaging of both breasts in two planes also obtained. Comparison dating back to 2014. Breast parenchyma is predominantly fatty replaced. No worrisome asymmetries or masses. No suspicious calcifications. No areas of architectural distortion are present. No skin or nipple finding of concern is appreciated. The examination is limited by the patient is kyphotic and inability to be positioned Procedure Note Jacob Louise MD - 01/22/2019 Bilateral full-field digital screening mammography is obtained and read inconjunction with computer-aided detection. Tomosynthesis as well as 2-D Cview imaging of both breasts in two planes also obtained. Comparison dating back to 2014. Breast parenchyma is predominantly fatty replaced. No worrisomeasymmetries or masses. No suspicious calcifications. No areas ofarchitectural distortion are present. No skin or nipple finding of concernis appreciated. The examination is limited by the patient is kyphotic andinability to be positioned IMPRESSION: Normal negative. Routine screening recommended. BI-RADS CATEGORY: 1 - Negative. DENSITY: The breast tissue is almost entirely fat. POS -[id number] Violeta Hatfield MD IMG MG EXAMS Final R esult documented in this encounter Visit Diagnoses Diagnosis Breast screening Breast screening, unspecified Breast screening Breast screening, unspecified documented in this encounter Additional Health Concerns Infection Onset Date Last Indicated Resolved Time CoV-Exposed Comment:Recent close contact documented in the COVID-19 PCR/PRO order 07/12/2020 07/12/2020 07/27/2020 1:23 AM E DT CoV-Risk 12/14/2020 12/20/2020 12/30/2020 1:22 AM EDT documented as of this encounter Care Teams Computer Engineering Professor Relationship Specialty Start Date End Date Angie Briggs MD PCP - General Family Medicine 01/22/19 07/11/20 Man Cochran NP 73 [place] [address] [email or web address] PCP - General Family Medicine 07/12/20 02/13/21 Angie Briggs MD [email or web address] PCP - General Family Medicine 02/14/21 03/26/23 Angie Briggs MD 70 [place] [address] [email or web address] PCP - General Family Medicine 03/27/23 True Liz MD [address] [place] [address] [email or web address] Intensive Care 07/17/23 [place] [address] [place] [address] [place] [address] Gastroenterology 07/17/23 documented as of this encounter Additional Source Comments The information contained in this document represents components of the legal health record. It is not the complete legal health record.[facility]
--- OUTSIDE RECORDS SUMMARY | 2025-02-26 16:30 | XMS_ITS | Encounter Summary ---
Author Organization [facility] Address [address] [place] [address] Phone Care Team Providers Care Deputy Director Of Public Works Name Role Phone Angie Briggs MD Primary Care Provider [phone]- [phone] Man Cochran NP Primary Care Provider [phone] Angie Briggs MD Primary Care Provider [phone]- [phone] Angie Briggs MD Primary Care Provider [phone]- [phone] True Liz MD Unavailable [phone] DesiletsWinston MD Unavailable [phone] Encounter Details Date Type Department Care Team (Late st Contact Info) Description 01/21/2019 Transcribe Orders Virtual Department 30 [place] [address] Shu Epstein, ENVIRONMENTAL HEALTH SAFETY ENGINEER [address] [place] [address] [email or web address] Neck pain (Primary Dx) Social [...] st Contact Info) Description 12/25/2024 Procedure Pass [facility], Ct Scan - [address] [address] 03/10/2025 Procedure Pass [facility] 4 ENDO DEPT [address] [facility], 4th [place] [address] 03/25/2025 6:00 PM EST Appointment [facility], Bone Density - [address] [address] Angie Briggs MD [address] [place] [address] 05/01/2025 10:30 AM EST Appointment [facility], Ct Scan [address] [address] True Liz MD [address] [place] [address] 05/04/2025 9:30 AM EST Office Visit [facility] Pulmonary, Allergy and Critical Care Medicine 10 [place] [address] True Liz MD [address] [place] [address] [email or web address] documented as of this encounter Visit Diagnoses Diagnosis Neck pain- Primary Cervicalgia documented in this encounter Additional Health Concerns Infection Onset Date Last Indicated Resolved Time CoV-Exposed Comment:Recent close contact documented in the COVID-19 PCR/PRO order 07/12/2020 07/12/2020 07/27/2020 1:23 AM E DT CoV-Risk 12/14/2020 12/20/2020 12/30/2020 1:22 AM EDT documented as of this encounter Care Teams Deputy Director Of Public Works Relationship Specialty Start Date End Date Angie Briggs MD [email or web address] PCP - General Family Medicine 01/22/19 07/11/20 Man Cochran NP 73 [place] [address] [email or web address] PCP - General Family Medicine 07/12/20 02/13/21 Angie Briggs MD [email or web address] PCP - General Family Medicine 02/14/21 03/26/23 Angie Briggs MD [address] [place] [address] [email or web address] PCP - General Family Medicine 03/27/23 True Liz MD [address] [place] [address] [email or web address] Intensive Care 07/17/23 Winston Laura MD [address] [place] [address] [place] [address] Gastroenterology 07/17/23 documented as of this encounter Additional Source Comments The information contained in this document represents components of the legal health record. It is not the complete legal health record.[facility]
--- OUTSIDE RECORDS SUMMARY | 2025-02-26 16:30 | XMS_ITS | Encounter Summary ---
Author Organization [facility] Address [address] [place] [address] [place] [address] Phone Care Team Providers Care Programmer Developer Name Role Phone Angie Briggs MD Primary Care Provider [phone]- [phone] True Liz MD Unavailable [phone] Desilets, Winston Vincent MD Unavailable [phone] Encounter Details Date Type Department Care Team (Late st Contact Info) Description 12/12/2023 Procedure Pass [facility], Ct Scan - [facility] 30 [place] [address] Social History Tobacco Use Types Packs/Day Years Used Date Smoking Tobacco: Former Cigarettes Q uit: 1980 Smokeless Tobacco: Never Alcohol Use Standard Drinks/Week [...] st Contact Info) Description 12/25/2024 Procedure Pass [facility] Ct Scan [address] [address] 03/10/2025 Procedure Pass [place] [address] ENDO DEPT [address] [facility], 4th [place] [address] 03/25/2025 6:00 PM EST Appointment [facility], Bone Density [address] [address] Angei Briggs MD [address] [place] [address] 05/01/2025 10:30 AM EST Appointment [facility] Ct Scan [address] [address] True Liz MD [address] [place] [address] 05/04/2025 9:30 AM EST Office Visit [facility] Pulmonary, Allergy and Critical [facility] Medicine [address] [place] [address] True Liz MD [address] [place] [address] documented as of this encounter Visit Diagnoses Not on filedocumented in this encounter Care Teams Programmer Developer Relationship Specialty Start Date End Date Angie Briggs MD [address] [place] [address] [email or web address] PCP - General Family Medicine 03/27/23 True Liz MD [address] [place] [address] [email or web address] Intensive Care 07/17/23 Winston Laura MD [address] [place] [address] [place] [address] Gastroenterology 07/17/23 documented as of this encounter Additional Source Comments The information contained in this document represents components of the legal health record. It is not the complete legal health record.[facility]
--- OUTSIDE RECORDS SUMMARY | 2025-02-26 16:30 | XMS_ITS | Encounter Summary ---
Demographics Address [address] [place] [address] Home Phone Work Phone Mobile Phone Email Address [employer] Preferred Language Maltese Marital Status /Civil Union Rastafarian Affiliation Unknown Race White Ethnic Group Not or Lati no Author Organization [facility] Address [address] [place] [address] [place] [address] Phone Care Team Providers Care Federal Air Marshal Name Role Phone Angie Briggs MD Primary Care Provider [phone] True Liz MD Unavailable [phone] Desilets, Winston Vincent MD Unavailable [phone] Encounter Details Date Type Department Care Team (Late st Contact Info) Description 02/12/2024 Procedure Pass [facility] Endoscopy Admitting Dept Virtual Department 30 [place] [address] Social History Tobacco Use Types Packs/Day Years [...] st Contact Info) Description 12/25/2024 Procedure Pass [facility] Ct Scan [address] [address] 03/10/2025 Procedure Pass [place] [address] ENDO DEPT 55 [facility], 4th [place] [address] 03/25/2025 6:00 PM EST Appointment [facility], Bone Density [address] [address] Angie Briggs MD [address] [place] [address] 05/01/2025 10:30 AM EST Appointment [facility] Ct Scan [address] [address] True Liz MD [address] [place] [address] 05/04/2025 9:30 AM EST Office Visit [facility] Allergy [facility] Critical [facility] [address] [place] [address] True Liz MD [address] [place] [address] documented as of this encounter Visit Diagnoses Not on filedocumented in this encounter Care Teams Federal Air Marshal Relationship Specialty Start Date End Date Angie Briggs MD 70 [place] [address] [email or web address] PCP - General Family Medicine 03/27/23 True Liz MD [address] [address] [email or web address] Intensive Care 07/17/23 Winston Laura MD [address] [place] [address] [place] [address] Gastroenterology 07/17/23 documented as of this encounter Additional Source Comments The information contained in this document represents components of the legal health record. It is not the complete legal health record.[facility]
--- OUTSIDE RECORDS SUMMARY | 2025-02-26 16:30 | XMS_ITS | Encounter Summary ---
Author Organization [facility] Address [address] [place] [address] [place] [address] Phone Care Team Providers Care Physician/Internist Name Role Phone Angie Briggs MD Primary Care Provider [phone]- [phone] True Liz MD Unavailable [phone] Desilets, Winston Vincent MD Unavailable [phone] Encounter Details Date Type Department Care Team (Late st Contact Info) Description 03/27/2023 Procedure Pass [facility], Ct Scan - [facility] 30 [place] [address] Social History Tobacco Use Types Packs/Day Years [...] st Contact Info) Description 12/25/2024 Procedure Pass [facility], Ct Scan [address] [address] 03/10/2025 Procedure Pass [facility] 4 ENDO DEPT [address] [facility], 4th [place] [address] 03/25/2025 6:00 PM EST Appointment [facility], Bone Density - [address] [address] Angie Briggs MD [address] [place] [address] 05/01/2025 10:30 AM EST Appointment [facility] Ct Scan [address] [address] True Liz MD [address] [place] [address] 05/04/2025 9:30 AM EST Office Visit [facility] Allergy [facility] Critical [facility] [address] [place] [address] True Liz MD [address] [place] [address] documented as of this encounter Visit Diagnoses Not on filedocumented in this encounter Care Teams Physician/Internist Relationship Specialty Start Date End Date Angie Briggs MD [address] [place] [address] PCP - General Family Medicine 03/27/23 True iLz MD [address] [place] [address] Intensive Care 07/17/23 Winston Laura MD [address] [place] [address] [place] [address] Gastroenterology 07/17/23 documented as of this encounter Additional Source Comments The information contained in this document represents components of the legal health record. It is not the complete legal health record.[facility]
--- OUTSIDE RECORDS SUMMARY | 2025-02-26 16:30 | XMS_ITS | Encounter Summary ---
Author Organization [facility] Address [address] [place] [address] Phone Care Team Providers Care Wad Printing Machine Operator Name Role Phone Angie Briggs MD Primary Care Provider [phone]- [phone] Man Cochran NP Primary Care Provider [phone] Angie Briggs MD Primary Care Provider +[phone]- [phone] Angie Briggs MD Primary Care Provider [phone]- [phone] True Liz MD Unavailable [phone] Desilets, Winston Vincent MD Unavailable [phone] Encounter Details Date Type Department Care Team (Late st Contact Info) Description 10/23/2019 Procedure Pass [facility] Endoscopy Admitting Dept Virtual Department 30 [place] [address] Social History Tobacco Use Types Packs/Day Years [...] st Contact Info) Description 12/25/2024 Procedure Pass [facility], Ct Scan - [facility] 30 [place] [address] 03/10/2025 Procedure Pass [facility] 4 ENDO DEPT [address] [facility], 4th [place] [address] 03/25/2025 6:00 PM EST Appointment [facility], Bone Density - [address] [address] Angie Briggs MD 70 [place] [address] 05/01/2025 10:30 AM EST Appointment [facility], Ct Scan - [address] [address] True Liz MD [address] [place] [address] 05/04/2025 9:30 AM EST Office Visit [facility] Pul[facility], Allergy and Critical [facility] Medicine [address] [place] [address] True Liz MD [address] [place] [address] [email or web address] documented as of this encounter Visit Diagnoses Not on filedocumented in this encounter Additional Health Concerns Infection Onset Date Last Indicated Resolved Time CoV-Exposed Comment:Recent close contact documented in the COVID-19 PCR/PRO order 07/12/2020 07/12/2020 07/27/2020 1:23 AM E DT CoV-Risk 12/14/2020 12/20/2020 12/30/2020 1:22 AM EDT documented as of this encounter Care Teams Wad Printing Machine Operator Relationship Specialty Start Date End Date Angie Briggs MD PCP - General Family Medicine 01/22/19 07/11/20 Man Cochran NP [address] [place] [address] [email or web address] PCP - General Family Medicine 07/12/20 02/13/21 Angie Briggs MD [email or web address] PCP - General Family Medicine 02/14/21 03/26/23 Angie Briggs MD [address] [place] [address] [email or web address] PCP - General Family Medicine 03/27/23 True Liz MD [address] [place] [address] [email or web address] Intensive Care 07/17/23 Winston Laura MD [address] [place] [address] [place] [address] Gastroenterology 07/17/23 documented as of this encounter Additional Source Comments The information contained in this document represents components of the legal health record. It is not the complete legal health record.[facility]
--- OUTSIDE RECORDS SUMMARY | 2025-02-26 16:30 | XMS_ITS | Encounter Summary ---
Author Organization [facility] Address [address] [place] [address] [place] [address] Phone Care Team Providers Care Leather Sprayer Name Role Phone Angie Briggs MD Primary Care Provider [phone]- [phone] True Liz MD Unavailable [phone] Desilets, Winston Vincent MD Unavailable [phone] Encounter Details Date Type Department Care Team (Late st Contact Info) Description 06/07/2023 Procedure Pass [facility] 4 ENDO DEPT [address] [facility], 4th [place] [address] Social History Tobacco Use Types Packs/Day Years [...] Contact Info) Description 12/25/2024 Procedure Pass [facility] Ct Scan [address] [address] 03/10/2025 Procedure Pass [place] [address] ENDO DEPT [address] [place] [address], 4th [place] [address] 03/25/2025 6:00 PM EST Appointment [facility], Bone Density [address] [address] Angie Briggs MD [address] [place] [address] 05/01/2025 10:30 AM EST Appointment [facility] Ct Scan [address] [address] True Liz MD [address] [place] [address] 05/04/2025 9:30 AM EST Office Visit [facility] Pul[facility], Allergy [facility] Critical [facility] Medicine [address] [place] [address] True Liz MD [address] [place] [address] documented as of this encounter Visit Diagnoses Not on filedocumented in this encounter Care Teams Leather Sprayer Relationship Specialty Start Date End Date Angie Briggs MD [address] [place] [address] [email or web address] PCP - General Family Medicine 03/27/23 True Liz MD [address] [place] [address] [email or web address] Intensive Care 07/17/23 DesphillytsWinston MD [address] [place] [address] [place] [address] Gastroenterology 07/17/23 documented as of this encounter Additional Source Comments The information contained in this document represents components of the legal health record. It is not the complete legal health record.[facility]
--- OUTSIDE RECORDS SUMMARY | 2025-02-26 16:30 | XMS_ITS | Encounter Summary ---
Author Organization [facility] Address [address] [place] [address] [place] [address] Phone Care Team Providers Care Plastics Fitter Name Role Phone Angie Briggs MD Primary Care Provider [phone] True Liz MD Unavailable [phone] Desilets, Winston Vincent MD Unavailable [phone] Encounter Details Date Type Department Care Team (Late st Contact Info) Description 01/04/2024 Procedure Pass [facility], [facility] [address] [place] [address] Social History Tobacco Use Types Packs/Day Years [...] st Contact Info) Description 12/25/2024 Procedure Pass [facility] Scan [address] [address] 03/10/2025 Procedure Pass [place] [address] ENDO DEPT [address] [facility], 4th [place] [address] 03/25/2025 6:00 PM EST Appointment [facility], [facility] [address] [address] Angie Briggs MD [address] [place] [address] 05/01/2025 10:30 AM EST Appointment [facility] Scan [address] [address] True Liz MD [address] [place] [address] 05/04/2025 9:30 AM EST Office Visit [facility] [address] [place] [address] True Liz MD [address] [place] [address] documented as of this encounter Visit Diagnoses Not on filedocumented in this encounter Care Teams Plastics Fitter Relationship Specialty Start Date End Date Angie Briggs MD [address] [place] [address] [email or web address] PCP - General Family Medicine 03/27/23 True Liz MD [address] [place] [address] [email or web address] Intensive Care 07/17/23 Winston Laura MD [address] [place] [address] [place] [address] Gastroenterology 07/17/23 documented as of this encounter Additional Source Comments The information contained in this document represents components of the legal health record. It is not the complete legal health record.[facility]
--- OUTSIDE RECORDS SUMMARY | 2025-02-26 16:30 | XMS_ITS | Encounter Summary ---
Author Organization [facility] Address [address] [place] [address] Phone Care Team Providers Care Stone Rougher Name Role Phone Angie Briggs MD Primary Care Provider [phone] Man Cochran NP Primary Care Provider [phone] Angie Briggs MD Primary Care Provider [phone] Angie Briggs MD Primary Care Provider [phone] True Liz MD Unavailable [phone] DesiletsWinston MD Unavailable [phone] Encounter Details Date Type Department Care Team (Late st Contact Info) Description 02/18/2019 Ancillary Orders [facility], X-Ray - [address] [address] Ronda Szmyanski NP [address] [place] [phone] [email or web address] Postural kyphosis, thoracic region Social History Tobacco Use Types Packs/Day Years [...] st Contact Info) Description 12/25/2024 Procedure Pass [facility], Ct Scan - [address] [address] 03/10/2025 Procedure Pass [facility] ENDO DEPT [address] [facility], 4th [place] [address] 03/25/2025 6:00 PM EST Appointment [facility], Bone Density - [address] [address] Angie Briggs MD [address] [place] [phone] 05/01/2025 10:30 AM EST Appointment [facility] Scan [address] [address] True Liz MD [address] [place] [address] 05/04/2025 9:30 AM EST Office Visit [facility] [address] [place] [address] True Liz MD [address] [place] [address] documented as of this encounter Results * XR THORACIC SPINE 3 VIEW (02/18/2019 10:47 AM EDT) Anatomical Region Laterality Modality T-spine Radiographic Nicol ging 02/18/2019 11:2 4 AM EDT Impressions 02/18/2019 11:30 AM EDT Mild anterior wedging of the T3 and T4 vertebrae, a new finding compared with 10/23/2016. Stable mild anterior wedging of the T7 vertebral body. Stable severe compression fracture of L1 with vertebroplasty material. POS - [id number] Narrative 02/18/2019 11:30 AM EDT XR THORACIC SPINE 3 VIEW HISTORY: Postural kyphosis, thoracic region, hx of compression fractures at mid thoracic and upper lumbar levels. Posture has worsened since the patient was last evaluated. Please evaluate for interval change last thoracic xer was 2017 TECHNIQUE: AP and lateral views thoracic spine. COMPARISON: 10/23/2016. FINDINGS: Dense vertebroplasty material with severe compression fracture of L1 appears unchanged, is at the very inferior aspect of the lateral view. Bones are demineralized. Mild anterior wedging of the T7 vertebral body is unchanged compared with 2017. There is mild anterior wedging of the T4 and T3 vertebral bodies, new compared with 2017. There is multilevel mild to moderate disc space narrowing with marginal osteophytic spurring. Mild dextroconvex curvature of the thoracolumbar spine is unchanged. Exaggerated kyphotic curvature. Procedure Note Marychuy Gomez MD - 02/18/2019 XR THORACIC SPINE 3 VIEW HISTORY: Postural kyphosis, thoracic region, hx of compression fracturesat mid thoracic and upper lumbar levels. Posture has worsened since thepatient was last evaluated. Please evaluate for interval change lastthoracic xer was 2017 TECHNIQUE: AP and lateral views thoracic spine. COMPARISON: 10/23/2016. FINDINGS: Dense vertebroplasty material with severe compression fracture of E1gnrrfbo unchanged, is at the very inferior aspect of the lateral view. Bones are demineralized. Mild anterior wedging of the T7 vertebral body isunchanged compared with 2017. There is mild anterior wedging of the T4 andT3 vertebral bodies, new compared with 2017. There is multilevel mild to moderate disc space narrowing with marginalosteophytic spurring. Mild dextroconvex curvature of the thoracolumbarspine is unchanged. Exaggerated kyphotic curvature. IMPRESSION: Mild anterior wedging of the T3 and T4 vertebrae, a new finding comparedwith 10/23/2016. Stable mild anterior wedging of the T7 vertebral body. Stable severecompression fracture of L1 with vertebroplasty material. POS - [id number] Ronda Szymanski NP IMG XR SPINE Final Result documented in this encounter Visit Diagnoses Diagnosis Postural kyphosis, thoracic region Postural kyphosis, thoracic region documented in this encounter Additional Health Concerns Infection Onset Date Last Indicated Resolved Time CoV-Exposed Comment:Recent close contact documented in the COVID-19 PCR/PRO order 07/12/2020 07/12/2020 07/27/2020 1:23 AM E DT CoV-Risk 12/14/2020 12/20/2020 12/30/2020 1:22 AM EDT documented as of this encounter Care Teams Stone Rougher Relationship Specialty Start Date End Date Angie Briggs MD [email or web address] PCP - General Family Medicine 01/22/19 07/11/20 Man Cochran NP [address] [place] [address] [email or web address] PCP - General Family Medicine 07/12/20 02/13/21 Angie Briggs MD [email or web address] PCP - General Family Medicine 02/14/21 03/26/23 Angie Briggs MD [address] [place] [address] [email or web address] PCP - General Family Medicine 03/27/23 True Liz MD [address] [address] [email or web address] Intensive Care 07/17/23 [place] [address] [place] [address] [place] [address] Gastroenterology 07/17/23 documented as of this encounter Additional Source Comments The information contained in this document represents components of the legal health record. It is not the complete legal health record.[facility]
== END 2025-02-26 14:01 | disposition home or self-care (01) ==
LOC: HO.HCS 13:25
PROVIDERS: PCP Family Medicine; Visit Provider Internal Medicine
DX: I48.0 Paroxysmal atrial fibrillation (principal); I51.81 Takotsubo syndrome; R94.31 Abnormal electrocardiogram [ECG] [EKG]
CPT/HCPCS: 93010; 99214; G2211

== ENCOUNTER → 2025-02-26 13:24 | Outpatient (BNVA) | payer MEDICARE, SELFPAY | PROVIDERS: PCP Family Medicine; Visit Provider Internal Medicine | DX: I48.0 Paroxysmal atrial fibrillation (principal); I51.81 Takotsubo syndrome; R94.31 Abnormal electrocardiogram [ECG] [EKG]; Z79.01 Long term (current) use of anticoagulants | CPT/HCPCS: 93005; 99212 ==